=== PATIENT | female | born 1960 | race Caucasian/White ===

== ENCOUNTER 2017-01-27 11:33 | Inpatient (IN) ==
[2017-01-27] MEDS ORDERED: ACETAMINOPHEN 325 MG TABLET PO PRN (11:45)
[2017-01-27] MEDS ORDERED: BISACODYL 10 MG SUPP.RECT PR PRN (11:45)
[2017-01-27] MEDS ORDERED: PROMETHAZINE 25 MG/ML VIAL IV PRN (11:45)
[2017-01-27] MEDS ORDERED: ZOLPIDEM 5 MG TABLET PO PRN (11:45)
[2017-01-27] MEDS: oxyCODONE/APAP 5/325MG TABLET PO PRN ×3 (12:27→22:31)
--- NOTE | 2017-01-27 12:30 | XRay Report ---
CLINICAL INFORMATION: Hypoxia COMPARISON: None. FINDINGS:The heart size, mediastinum and pulmonary vessels are unremarkable. The lungs are clear. There are no effusions. The bones and soft tissues are within normal limits. IMPRESSION: Normal chest. Interpreted and Authenticated by: Dayo Haddad 01/27/17
--- NOTE | 2017-01-27 12:31 | General Surg History&Physical ---
History of Present Illness Patient information: Note initiated : 01/27/17 at 12:01 pm Service Date, if different from initiated Date: [] Patient: Rain Harden 56 y/o F admitted on 01/27/17 for colitis and sepsis. Chief Complaint: [] HPI: Ms. Harden is a 56 year old female Medications and Allergies Home Medications Medication Instructions Recorded Confirmed Type Sulfamethoxazole/Trimethoprim 1 tab PO BID #20 tab 01/26/17 01/27/17 Rx [Bactrim Ds] Allergies Allergy/AdvReac Type Severity Reaction Status Date / Time morphine Allergy Severe Wheezing Verified 01/27/17 10:34 aspirin Allergy Intermediate Hives Verified 01/27/17 10:34
[2017-01-27 12:46] LABS: Mean Cell Volume 85.8 fL (80.0-100.0); Mean Corpuscular HGB Conc 33.1 g/dL (31.0-36.0); Mean Corpuscular Hemoglobin 28.4 pg (26.0-34.0); Platelet Count 576 K/mcL (140-440); RBC 4.08 M/mcL (4.00-5.20); Red Cell Distribution Width 12.7 % (11.5-14.5)
[2017-01-27 13:01] LABS: proBNP 193.7 pg/ml (0-125)
[2017-01-27 13:06] LABS: ALT/SGPT 11 U/l (0-40); Albumin 2.5 gm/dL (3.2-5.2); Albumin/Globulin Ratio 0.5 (1.0-2.3); Alkaline Phosphatase 140 U/L (39-117); Bilirubin,Direct < 0.2 mg/dL (0.0-0.3); Blood Urea Nitrogen 10 mg/dl (6-20); Gamma Glutamyl Transpeptidase 52 U/L (5-36); Magnesium 1.4 mg/dL (1.6-2.5); Uric Acid 1.9 mg/dL (2.5-8.0)
[2017-01-27] MEDS: 0.9 % SODIUM CHLORIDE 1,000 ML IV SCH ×3 (13:13→21:17)
[2017-01-27] MEDS: PIPERACILLIN SODIUM/TAZOBACTAM 3.375 GM in DEXTROSE 5% IN WATER 50 ML IV SCH ×3 (13:14→23:30)
[2017-01-27] MEDS: 0.9 % SODIUM CHLORIDE 10 ML SYRINGE IV SCH ×2 (13:22→21:23)
[2017-01-27 13:38] LABS: Lymphocytes % 9 % (15-49); Monocytes % (Manual) 8 % (1-12); Platelet Estimate INCREASED (NORMAL); RBC Morphology NORMAL (NORMAL); Segmented Neutrophils % 83 % (38-78)
[2017-01-27 14:10] LABS: Estimated Average Glucose(eAG) 312 mg/dL; Hemoglobin A1C 12.5 % HGB (4.0-6.0)
[2017-01-27] MEDS ORDERED: DEXTROSE 50% 50 ML VIAL IV PRN (15:21)
[2017-01-27 15:22] LABS: Appearance,Urine CLEAR; Bacteria,Urine 0 /hpf (0); Bilirubin,Urine NEG (NEG); Color,Urine STRAW; Glucose,Urine (UA) >=500 mg/dL (NEG); Leukocyte Esterase,Urine 250 /uL (NEG); Nitrate,Urine NEG (NEG); Protein,Urine NEG (NEG); Specific Gravity,Urine 1.014 (1.000-1.035); Urine Blood 0.03 mg/dL (<0.03); Urine Hyaline Cast 1 /lpf (0-2); Urine RBC 3 /hpf (0-1); Urine Squamous Epithelial Cell 1 /hpf (0-4); Urine Transitional Epi Cells < 1 /hpf (0-2); Urine WBC 41 /hpf (0-4); Urobilinogen,Urine NEG (NEG)
[2017-01-27] MEDS: HYDROmorphone 2 MG/ML SYRINGE IV PRN ×3 (16:38→23:26)
[2017-01-27] MEDS: INSULIN LISPRO 1 UNIT/0.01 ML UNIT SQ SCH ×2 (16:42→21:18)
[2017-01-27] MEDS: hydrOXYzine 25 MG TABLET PO SCH (21:17)
[2017-01-27] MEDS: GABAPENTIN 300 MG CAPSULE PO SCH (21:17)
[2017-01-27] MEDS: TRAVOPROST OPHTH DROPS BOTTLE 2.5ML OU SCH (21:23)
[2017-01-28] MEDS: 0.9 % SODIUM CHLORIDE 1,000 ML IV SCH ×4 (03:17→21:34)
[2017-01-28] MEDS: oxyCODONE/APAP 5/325MG TABLET PO PRN ×2 (03:31→17:30)
[2017-01-28] MEDS: HYDROmorphone 2 MG/ML SYRINGE IV PRN ×6 (03:31→20:28)
[2017-01-28] MEDS: 0.9 % SODIUM CHLORIDE 10 ML SYRINGE IV SCH ×3 (04:56→23:50)
[2017-01-28] MEDS: PIPERACILLIN SODIUM/TAZOBACTAM 3.375 GM in DEXTROSE 5% IN WATER 50 ML IV SCH ×3 (05:47→18:30)
[2017-01-28] MEDS: VENLAFAXINE 75 MG CAP.XL.24H PO SCH (08:33)
[2017-01-28] MEDS: PANTOPRAZOLE 40 MG VIAL IV SCH (08:33)
[2017-01-28] MEDS: ENOXAPARIN 40 MG/0.4 ML SYRINGE SQ SCH (08:33)
[2017-01-28] MEDS: INSULIN LISPRO 1 UNIT/0.01 ML UNIT SQ SCH ×4 (08:33→20:28)
[2017-01-28] MEDS: VENLAFAXINE 150 MG CAP.XL.24H PO SCH (08:33)
[2017-01-28] MEDS: GABAPENTIN 300 MG CAPSULE PO SCH ×3 (08:34→20:14)
[2017-01-28] MEDS ORDERED: POTASSIUM PHOSPHATE 40 MEQ in DEXTROSE 5% IN WATER 500 ML IV ONE (09:59)
[2017-01-28] MEDS ORDERED: MAGNESIUM SULFATE 32.48 MEQ in DEXTROSE 5% IN WATER 50 ML IV ONE (10:00)
[2017-01-28] MEDS ORDERED: VANCOMYCIN PER PHARMACY IV SCH (15:10)
--- NOTE | 2017-01-28 15:23 | General Surgery Progress Note ---
Subjective Patient reports: feels better, still having pain, pain is less, tolerating liquids well, flatus, bowel movement, fever Narrative: Note initiated : 01/28/17 at 3:19 pm Service Date, if different from initiated Date: [] Patient: Rain Harden a 56 y/o F admitted on 01/27/17 for colitis and sepsis. Chief Complaint: [Patient states that she feels better though she does have significant pain in the right lower quadrant. The suprapubic pain has decreased but is still present. She was febrile to 100 earlier this morning but has been afebrile all day. She has passed flatus but has not had bowel movements. She denies nausea or vomiting.] Pertinent ROS: chest--no shortness of breath or dyspnea Heart--without chest pain Abdomen--- no increase in pain Extremity--- no edema Objective Temp Pulse Resp BP Pulse Ox 98.5 F 99 H 16 124/77 92 01/28/17 11:50 01/28/17 08:00 01/28/17 11:50 01/28/17 11:50 01/28/17 11:50 - Additional Data Intake & Output - Last 24 hours: Intake & Output 01/26/17 01/27/17 01/28/17 01/29/17 05:59 05:59 05:59 05:59 Intake Total 3890 / 3890 550 / 550 Output Total 2475 / 2475 400 / 400 Balance 1415 / 1415 150 / 150 Weight 201 lb - General physical appearance moderate distress - Eyes PERRL - ENT no congestion - Neck no venous distension - Respiratory normal expansion, clear to auscultation - Cardiovascular Cardiovascular exam: Present: normal rate and rhythm, RRR, +S1, +S2. Absent: JVD - Abdomen tender, bowel sounds, distended (Distention is improved; good active bowel sounds; moderate tenderness in suprapubic and right lower quadrant areas) - Integumentary no rash, no growths, no abnormal pigmentation - Neurologic normal coordination, normal sensation - Musculoskeletal normal gait, normal posture - Psychiatric oriented to time, oriented to person, oriented to place, speech is normal, memory intact - Labs 01/30/17 04:23 01/30/17 04:23 Assessment and Plan (1) Abdominal wall abscess Status: Acute Current Visit: Yes (2) Constipation Status: Acute Current Visit: No - Time Spent With Patient Total time spent is greater than 50% in coordination of care (as documented) at patient's floor/unit and/or counseling patient:
[2017-01-28] MEDS: VANCOMYCIN 1,000 MG in 0.9 % SODIUM CHLORIDE 250 ML IV SCH (17:28)
[2017-01-28] MEDS: TRAVOPROST OPHTH DROPS BOTTLE 2.5ML OU SCH (20:13)
[2017-01-28] MEDS: hydrOXYzine 25 MG TABLET PO SCH (20:14)
[2017-01-28] MEDS ORDERED: MINERAL OIL 1 DOSE ENEMA PR ONE (20:35)
[2017-01-29] MEDS: PIPERACILLIN SODIUM/TAZOBACTAM 3.375 GM in DEXTROSE 5% IN WATER 50 ML IV SCH ×4 (00:21→17:54)
[2017-01-29] MEDS: VANCOMYCIN 1,000 MG in 0.9 % SODIUM CHLORIDE 250 ML IV SCH ×2 (03:53→15:39)
[2017-01-29] MEDS: HYDROmorphone 2 MG/ML SYRINGE IV PRN ×5 (04:30→21:48)
[2017-01-29] MEDS: 0.9 % SODIUM CHLORIDE 1,000 ML IV SCH ×2 (04:56→12:01)
[2017-01-29] MEDS: 0.9 % SODIUM CHLORIDE 10 ML SYRINGE IV SCH ×3 (06:02→21:43)
[2017-01-29 06:20] LABS: Basophils # (Auto) 0.1 K/mcL (0.0-0.3); Basophils % (Auto) 0.3 % (0.0-2.0); Eosinophils # (Auto) 0.1 K/mcL (0.0-0.7); Eosinophils % (Auto) 0.5 % (0.0-7.0); Granulocytes % (Auto) 84.1 % (38.0-78.0); Lymphocytes # (Auto) 1.4 K/mcL (1.5-4.8); Lymphocytes % (Auto) 8.4 % (15.5-49.0); Mean Cell Volume 86.5 fL (80.0-100.0); Mean Corpuscular HGB Conc 33.5 g/dL (31.0-36.0); Mean Corpuscular Hemoglobin 28.9 pg (26.0-34.0); Monocytes # (Auto) 1.1 K/mcL (0.1-0.9); Monocytes % (Auto) 6.7 % (1.0-12.0); Platelet Count 550 K/mcL (140-440); RBC 3.64 M/mcL (4.00-5.20); Red Cell Distribution Width 13.4 % (11.5-14.5)
[2017-01-29 06:46] LABS: ALT/SGPT 7 U/l (0-40); Albumin/Globulin Ratio 0.5 (1.0-2.3); Alkaline Phosphatase 189 U/L (39-117); Bilirubin,Direct < 0.2 mg/dL (0.0-0.3); Blood Urea Nitrogen 2 mg/dl (6-20); Gamma Glutamyl Transpeptidase 50 U/L (5-36); Magnesium 1.7 mg/dL (1.6-2.5)
[2017-01-29] MEDS ORDERED: POTASSIUM PHOSPHATE IV ONE (07:04)
[2017-01-29] MEDS ORDERED: WATER IV ONE (07:04)
[2017-01-29] MEDS ORDERED: DEXTROSE 5% IV ONE (07:04)
[2017-01-29] MEDS ORDERED: MAGNESIUM SULFATE 32.48 MEQ in DEXTROSE 5% IN WATER 50 ML IV ONE (07:07)
[2017-01-29] MEDS: PANTOPRAZOLE 40 MG VIAL IV SCH (07:28)
[2017-01-29] MEDS: INSULIN LISPRO 1 UNIT/0.01 ML UNIT SQ SCH ×4 (07:32→21:43)
[2017-01-29] MEDS: VENLAFAXINE 150 MG CAP.XL.24H PO SCH (08:53)
[2017-01-29] MEDS: GABAPENTIN 300 MG CAPSULE PO SCH ×3 (08:53→21:43)
[2017-01-29] MEDS: VENLAFAXINE 75 MG CAP.XL.24H PO SCH (08:53)
[2017-01-29] MEDS: ENOXAPARIN 40 MG/0.4 ML SYRINGE SQ SCH (08:53)
[2017-01-29] MEDS: oxyCODONE/APAP 5/325MG TABLET PO PRN (09:37)
--- NOTE | 2017-01-29 10:19 | XRay Report ---
CLINICAL INFORMATION: Abdominal pain COMPARISON: None. FINDINGS: A small amount of enteric contrast, from recent abdominal CT, within the colon.. Stomach, small and large bowel are normal. No free air, pathologic calcification or organomegaly. No soft tissue mass IMPRESSION: Negative Interpreted and Authenticated by: Dayo Haddad 01/29/17
--- NOTE | 2017-01-29 13:18 | General Surgery Progress Note ---
Subjective Patient reports: feels better, still having pain, flatus, no bowel movement, afebrile Narrative: Note initiated : 01/29/17 at 1:16 pm Service Date, if different from initiated Date: [] Patient: Rain Harden 56 y/o F admitted on 01/27/17 for colitis and sepsis. Chief Complaint: [Patient is slightly improved. Her pain persists in the right abdomen and suprapubic area. She has crampy mid abdominal pain. A milk of molasses enema was given last evening but was not successful. Abdominal series shows retained large volume fecal content in left colon with gas in the transverse colon. She has scattered gas in the small bowel.] Objective Temp Pulse Resp BP Pulse Ox 97.0 F 108 H 20 103/66 96 01/29/17 12:32 01/29/17 07:30 01/29/17 12:32 01/29/17 12:32 01/29/17 12:32 - Additional Data Intake & Output - Last 24 hours: Intake & Output 01/27/17 01/28/17 01/29/17 01/30/17 05:59 05:59 05:59 05:59 Intake Total 3890 / 3890 4550 / 4550 2428 / 2428 Output Total 2475 / 2475 1400 / 1400 1200 / 1200 Balance 1415 / 1415 3150 / 3150 1228 / 1228 Weight 201 lb 203 lb - General physical appearance severe distress - Eyes PERRL - ENT no congestion - Neck no venous distension - Respiratory clear to auscultation - Cardiovascular Cardiovascular exam: Present: normal rate and rhythm, RRR, +S1, +S2. Absent: JVD - Abdomen tender, distended (Moderate distention with tenderness over the right lower quadrant and midabdomen.) - Rectum other (Rectal exam was unremarkable except for stool in the high rectal vault) - Integumentary no rash, no growths, no abnormal pigmentation - Neurologic normal coordination, normal sensation - Musculoskeletal normal gait, normal posture - Psychiatric oriented to time, oriented to person, oriented to place, speech is normal, memory intact - Labs 01/29/17 04:40 01/29/17 04:40 Diabetes panel 01/29/17 Range/Units 04:40 Sodium 133 (133-145) mmol/L Potassium 2.8 L* (3.3-5.1) mmol/L Chloride 94 L (96-108) mmol/L Carbon Dioxide 21 L (22-30) mmol/L BUN 2 L (6-20) mg/dl Creatinine 0.6 (0.6-1.1) mg/dl Glucose 200 H (70-105) mg/dL Calcium 7.4 L (8.6-10.4) mg/dl AST 13 (0-37) U/l ALT 7 (0-40) U/l Alkaline Phosphatase 189 H (39-117) U/L Total Protein 6.1 (5.9-8.4) gm/dL Albumin 2.0 L (3.2-5.2) gm/dL Triglycerides 107 (<150) mg/dl Calcium panel 01/29/17 Range/Units 04:40 Calcium 7.4 L (8.6-10.4) mg/dl Phosphorus 1.6 L (2.7-4.5) mg/dL Albumin 2.0 L (3.2-5.2) gm/dL Pituitary panel 01/29/17 Range/Units 04:40 Sodium 133 (133-145) mmol/L Potassium 2.8 L* (3.3-5.1) mmol/L Chloride 94 L (96-108) mmol/L Carbon Dioxide 21 L (22-30) mmol/L BUN 2 L (6-20) mg/dl Creatinine 0.6 (0.6-1.1) mg/dl Glucose 200 H (70-105) mg/dL Calcium 7.4 L (8.6-10.4) mg/dl Adrenal panel 01/29/17 Range/Units 04:40 Sodium 133 (133-145) mmol/L Potassium 2.8 L* (3.3-5.1) mmol/L Chloride 94 L (96-108) mmol/L Carbon Dioxide 21 L (22-30) mmol/L BUN 2 L (6-20) mg/dl Creatinine 0.6 (0.6-1.1) mg/dl Glucose 200 H (70-105) mg/dL Calcium 7.4 L (8.6-10.4) mg/dl Total Bilirubin 0.2 (0.0-1.0) mg/dL AST 13 (0-37) U/l ALT 7 (0-40) U/l Alkaline Phosphatase 189 H (39-117) U/L Total Protein 6.1 (5.9-8.4) gm/dL Albumin 2.0 L (3.2-5.2) gm/dL Assessment and Plan (1) Constipation Status: Acute Current Visit: No - Time Spent With Patient Total time spent is greater than 50% in coordination of care (as documented) at patient's floor/unit and/or counseling patient:
[2017-01-29] MEDS: hydrOXYzine 25 MG TABLET PO SCH (21:43)
[2017-01-29] MEDS: TRAVOPROST OPHTH DROPS BOTTLE 2.5ML OU SCH (21:43)
[2017-01-30] MEDS: 0.9 % SODIUM CHLORIDE 1,000 ML IV SCH ×4 (00:15→21:12)
[2017-01-30] MEDS: HYDROmorphone 2 MG/ML SYRINGE IV PRN ×6 (03:20→22:01)
[2017-01-30] MEDS: VANCOMYCIN 1,000 MG in 0.9 % SODIUM CHLORIDE 250 ML IV SCH ×2 (04:12→16:02)
[2017-01-30] MEDS: PIPERACILLIN SODIUM/TAZOBACTAM 3.375 GM in DEXTROSE 5% IN WATER 50 ML IV SCH ×5 (05:45→17:53)
[2017-01-30 05:52] LABS: Basophils # (Auto) 0 K/mcL (0.0-0.3); Basophils % (Auto) 0.3 % (0.0-2.0); Eosinophils # (Auto) 0.4 K/mcL (0.0-0.7); Eosinophils % (Auto) 2.3 % (0.0-7.0); Lymphocytes % (Auto) 12.7 % (15.5-49.0); Mean Cell Volume 85.1 fL (80.0-100.0); Mean Corpuscular HGB Conc 32.9 g/dL (31.0-36.0); Monocytes # (Auto) 1.5 K/mcL (0.1-0.9); Monocytes % (Auto) 9.7 % (1.0-12.0); Platelet Count 492 K/mcL (140-440); Red Cell Distribution Width 13.3 % (11.5-14.5)
[2017-01-30] MEDS: 0.9 % SODIUM CHLORIDE 10 ML SYRINGE IV SCH ×3 (05:55→21:49)
[2017-01-30 06:02] LABS: ALT/SGPT 7 U/l (0-40); Albumin 1.8 gm/dL (3.2-5.2); Albumin/Globulin Ratio 0.4 (1.0-2.3); Alkaline Phosphatase 112 U/L (39-117); Bilirubin,Direct < 0.2 mg/dL (0.0-0.3); Blood Urea Nitrogen 2 mg/dl (6-20); Gamma Glutamyl Transpeptidase 41 U/L (5-36); Magnesium 1.9 mg/dL (1.6-2.5); Uric Acid 0.9 mg/dL (2.5-8.0)
[2017-01-30] MEDS: PANTOPRAZOLE 40 MG VIAL IV SCH (07:37)
[2017-01-30] MEDS ORDERED: POTASSIUM CHLORIDE 40 MEQ in DEXTROSE 5% IN WATER 500 ML IV ONE (08:30)
[2017-01-30] MEDS ORDERED: IOPAMIDOL 100 ML BOTTLE IJ ONE (08:34)
[2017-01-30] MEDS: VENLAFAXINE 150 MG CAP.XL.24H PO SCH (09:14)
[2017-01-30] MEDS: ENOXAPARIN 40 MG/0.4 ML SYRINGE SQ SCH (09:15)
[2017-01-30] MEDS: INSULIN LISPRO 1 UNIT/0.01 ML UNIT SQ SCH ×4 (09:15→21:14)
[2017-01-30] MEDS: VENLAFAXINE 75 MG CAP.XL.24H PO SCH (09:15)
[2017-01-30] MEDS: GABAPENTIN 300 MG CAPSULE PO SCH ×3 (09:15→21:12)
--- NOTE | 2017-01-30 14:40 | Cat Scan Report ---
CLINICAL INFORMATION: Worsening right lower quadrant pain COMPARISON: ] 01/26/[address] TECHNIQUE: Following enteric contrast, 80 cc of Isovue-300 were injected intravenously, and 60 seconds later, 2.5 mm helical slices were obtained from the mid heart through the subtrochanteric regions. Following reconstruction, 2.5 mm sagittal, coronal and axial reformatted images were processed and reviewed at bone, lung and soft tissue windows. Five minutes later, 5 mm helical slices were obtained from the mid heart through the kidneys and viewed at soft tissue windows. FINDINGS: Lung bases show no abnormality - no effusion. The visualized heart is normal. Images through the abdomen show the gallbladder is surgically absent. Intrahepatic and common bile ducts are mildly dilated: CBD is 11 mm. The pancreas, both kidneys, adrenal glands, spleen and aorta are unremarkable. There is no free air, free fluid or adenopathy. Stomach, small and large bowel are normal. Images through the pelvis show the urinary bladder and uterus to be normal as before. The thick-walled fluid collection in the left adductor tendon insertion on pubic symphysis has decreased slightly since the study four days ago. It now measures 3.4 cm. Mild inflammatory thickening and soft tissue over the pubic symphysis seen - as before. The fluid collection in the deep right Camper's fascia, adjacent to the right rectus abdominis, show modest increase in size now 5.1 x 11.5 cm There is also moderate amount of inflammation in the surrounding fat. Bone windows show no osseous abnormality. IMPRESSION: 1. Thick-walled fluid collection in the deep Camper's fascia in the right lower quadrant, adjacent to the right rectus abdominis muscle, shows mild increase in size. There is a moderate amount of inflammation in the surrounding soft tissues. This could represent an abscess. 2. 3.4 cm fluid collection in the left adductor tendon origin on the symphysis pubis. This has decreased slightly. Interpreted and Authenticated by: Dayo Haddad 01/30/17
--- NOTE | 2017-01-30 14:45 | General Surgery Progress Note ---
Subjective Patient reports: still having pain, flatus, bowel movement, fever Narrative: Note initiated : 01/30/17 at 2:42 pm Service Date, if different from initiated Date: [] Patient: Rain Harden 56 y/o F admitted on 01/27/17 for colitis and sepsis. Chief Complaint: [Mrs. Harden continues to have pain in the right lower quadrant and suprapubic area. She has not had fever over the past 24 hours. She is having worsening difficulty moving. Her white blood count has not decreased significantly. CT of the abdomen that was done today shows that the 2 areas of inflammation are significantly worse. It is going to require operative drainage and debridement. She was informed of this and advised that this procedure will be done in the morning. She remains somewhat anorexic.] Objective Temp Pulse Resp BP Pulse Ox 98.5 F 100 H 20 134/70 95 01/30/17 11:56 01/30/17 07:57 01/30/17 11:56 01/30/17 11:56 01/30/17 11:56 - Additional Data Intake & Output - Last 24 hours: Intake & Output 01/28/17 01/29/17 01/30/17 01/31/17 05:59 05:59 05:59 05:59 Intake Total 3890 / 3890 4800 / 4800 4468 / 4468 2680 / 2680 Output Total 2475 / 2475 1400 / 1400 3550 / 3550 1750 / 1750 Balance 1415 / 1415 3400 / 3400 918 / 918 930 / 930 Weight 201 lb 203 lb 208 lb - General physical appearance severe pain - Eyes PERRL - ENT no congestion - Neck no venous distension - Respiratory normal expansion, normal respiratory effort, clear to auscultation - Cardiovascular Cardiovascular exam: Present: normal rate and rhythm, RRR, +S1, +S2. Absent: JVD - Abdomen tender, bowel sounds, distended (Mild distention with active bowel sounds; tenderness in suprapubic area and and right lower quadrant with mass-effect on the right) - Integumentary no rash, no growths, no abnormal pigmentation - Neurologic normal coordination, normal sensation - Musculoskeletal normal gait, normal posture - Psychiatric oriented to time, oriented to person, oriented to place, speech is normal, memory intact - Labs 01/30/17 04:23 01/30/17 04:23 Diabetes panel 01/30/17 Range/Units 04:23 Sodium 133 (133-145) mmol/L Potassium 3.0 L (3.3-5.1) mmol/L Chloride 95 L (96-108) mmol/L Carbon Dioxide 25 (22-30) mmol/L BUN 2 L (6-20) mg/dl Creatinine 0.5 L (0.6-1.1) mg/dl Glucose 138 H (70-105) mg/dL Calcium 7.6 L (8.6-10.4) mg/dl AST 15 (0-37) U/l ALT 7 (0-40) U/l Alkaline Phosphatase 112 (39-117) U/L Total Protein 5.9 (5.9-8.4) gm/dL Albumin 1.8 L (3.2-5.2) gm/dL Triglycerides 98 (<150) mg/dl Calcium panel 01/30/17 Range/Units 04:23 Calcium 7.6 L (8.6-10.4) mg/dl Phosphorus 2.7 (2.7-4.5) mg/dL Albumin 1.8 L (3.2-5.2) gm/dL Pituitary panel 01/30/17 Range/Units 04:23 Sodium 133 (133-145) mmol/L Potassium 3.0 L (3.3-5.1) mmol/L Chloride 95 L (96-108) mmol/L Carbon Dioxide 25 (22-30) mmol/L BUN 2 L (6-20) mg/dl Creatinine 0.5 L (0.6-1.1) mg/dl Glucose 138 H (70-105) mg/dL Calcium 7.6 L (8.6-10.4) mg/dl Adrenal panel 01/30/17 Range/Units 04:23 Sodium 133 (133-145) mmol/L Potassium 3.0 L (3.3-5.1) mmol/L Chloride 95 L (96-108) mmol/L Carbon Dioxide 25 (22-30) mmol/L BUN 2 L (6-20) mg/dl Creatinine 0.5 L (0.6-1.1) mg/dl Glucose 138 H (70-105) mg/dL Calcium 7.6 L (8.6-10.4) mg/dl Total Bilirubin 0.2 (0.0-1.0) mg/dL AST 15 (0-37) U/l ALT 7 (0-40) U/l Alkaline Phosphatase 112 (39-117) U/L Total Protein 5.9 (5.9-8.4) gm/dL Albumin 1.8 L (3.2-5.2) gm/dL Assessment and Plan (1) Constipation Status: Acute Assessment and plan: She had some response to the milk of molasses enema and has had 3 bowel movements though they have been poorly quantitated. She will be allowed to have regular diet tonight and will be n.p.o. after midnight. Current Visit: No (2) Abdominal wall abscess Status: Acute Assessment and plan: Patient counseled for exploration of abdominal wall with drainage of abscess. This will be done in the morning. Current Visit: Yes - Time Spent With Patient Total time spent is greater than 50% in coordination of care (as documented) at patient's floor/unit and/or counseling patient:
[2017-01-30] MEDS: hydrOXYzine 25 MG TABLET PO SCH (21:12)
[2017-01-30] MEDS: TRAVOPROST OPHTH DROPS BOTTLE 2.5ML OU SCH (22:02)
[2017-01-31] MEDS: TRAVOPROST OPHTH DROPS BOTTLE 2.5ML OU SCH ×2 (00:26→22:59)
[2017-01-31] MEDS: PIPERACILLIN SODIUM/TAZOBACTAM 3.375 GM in DEXTROSE 5% IN WATER 50 ML IV SCH ×4 (00:26→22:57)
[2017-01-31] MEDS: HYDROmorphone 2 MG/ML SYRINGE IV PRN ×6 (02:41→23:07)
[2017-01-31] MEDS: VANCOMYCIN 1,000 MG in 0.9 % SODIUM CHLORIDE 250 ML IV SCH ×3 (04:02→21:32)
[2017-01-31 06:20] LABS: Basophils # (Auto) 0 K/mcL (0.0-0.3); Basophils % (Auto) 0.1 % (0.0-2.0); Eosinophils # (Auto) 0.1 K/mcL (0.0-0.7); Granulocytes % (Auto) 83.6 % (38.0-78.0); Lymphocytes # (Auto) 1.3 K/mcL (1.5-4.8); Lymphocytes % (Auto) 8.8 % (15.5-49.0); Mean Cell Volume 86.1 fL (80.0-100.0); Mean Corpuscular HGB Conc 33.1 g/dL (31.0-36.0); Mean Corpuscular Hemoglobin 28.5 pg (26.0-34.0); Monocytes # (Auto) 0.9 K/mcL (0.1-0.9); Monocytes % (Auto) 6.5 % (1.0-12.0); Platelet Count 482 K/mcL (140-440); RBC 3.19 M/mcL (4.00-5.20); Red Cell Distribution Width 13.2 % (11.5-14.5)
[2017-01-31 06:42] LABS: ALT/SGPT 7 U/l (0-40); Albumin/Globulin Ratio 0.6 (1.0-2.3); Alkaline Phosphatase 114 U/L (39-117); Bilirubin,Direct < 0.2 mg/dL (0.0-0.3); Blood Urea Nitrogen 2 mg/dl (6-20); Gamma Glutamyl Transpeptidase 38 U/L (5-36); Magnesium 1.8 mg/dL (1.6-2.5); Uric Acid 0.8 mg/dL (2.5-8.0)
[2017-01-31] MEDS: 0.9 % SODIUM CHLORIDE 10 ML SYRINGE IV SCH (06:56)
[2017-01-31] MEDS ORDERED: IPRATROPIUM/ALBUTEROL 3 ML AMPUL.NEB NEB ONE (07:39)
[2017-01-31] MEDS ORDERED: LIDOCAINE HCL/PF 100 MG/5 ML SYRINGE IV ONE (08:30)
[2017-01-31] MEDS ORDERED: fentaNYL 250 MCG/5 ML VIAL IV ONE (08:30)
[2017-01-31] MEDS ORDERED: DEXAMETHASONE 10 MG/ML VIAL IV ONE (08:30)
[2017-01-31] MEDS ORDERED: SUCCINYLCHOLINE 20 MG/ML ML IV ONE (08:30)
[2017-01-31] MEDS ORDERED: HYDROmorphone 2 MG/ML SYRINGE IV ONE (08:30)
[2017-01-31] MEDS ORDERED: NEOSTIGMINE 1 MG/ML VIAL IV ONE (08:30)
[2017-01-31] MEDS ORDERED: MIDAZOLAM 5 MG/5 ML VIAL IV ONE (08:30)
[2017-01-31] MEDS ORDERED: ONDANSETRON 4 MG/2 ML VIAL IV ONE (08:30)
[2017-01-31] MEDS ORDERED: PROPOFOL 200 MG/20 ML VIAL IV ONE (08:30)
[2017-01-31] MEDS ORDERED: ROCURONIUM 10 MG/ML ML IV ONE (08:30)
[2017-01-31] MEDS ORDERED: GLYCOPYRROLATE 0.2 MG/ML VIAL IV ONE (08:30)
[2017-01-31] MEDS: PANTOPRAZOLE 40 MG VIAL IV SCH (08:47)
[2017-01-31] MEDS: INSULIN LISPRO 1 UNIT/0.01 ML UNIT SQ SCH ×4 (08:47→20:59)
[2017-01-31] MEDS ORDERED: LACTATED RINGERS 250 ML IV PRN (09:37)
[2017-01-31] MEDS ORDERED: IPRATROPIUM/ALBUTEROL 3 ML AMPUL.NEB NEB PRN (09:37)
[2017-01-31] MEDS ORDERED: ONDANSETRON 4 MG/2 ML VIAL IV PRN (09:37)
[2017-01-31] MEDS ORDERED: HYDROmorphone 2 MG/ML SYRINGE IV PRN (09:37)
[2017-01-31] MEDS ORDERED: diphenhydrAMINE 50 MG/ML VIAL IV PRN (09:37)
[2017-01-31] MEDS ORDERED: NALOXONE HCL 0.4 MG/ML VIAL IV PRN (09:37)
[2017-01-31] MEDS ORDERED: PROMETHAZINE 25 MG/ML VIAL IV PRN ×2 (09:37→10:46)
[2017-01-31] MEDS ORDERED: MEPERIDINE 50 MG/ML SYRINGE IM PRN (09:37)
[2017-01-31] MEDS ORDERED: ePHEDrine 50 MG/ML AMPUL IV PRN (09:37)
[2017-01-31] MEDS ORDERED: PROMETHAZINE 25 MG/ML VIAL IM PRN (09:37)
[2017-01-31] MEDS ORDERED: BENZOCAINE/MENTHOL 1 LOZENGE PO PRN ×2 (09:37→10:46)
[2017-01-31] MEDS ORDERED: METHOCARBAMOL 1,000 MG/10 ML VIAL IV PRN (09:37)
[2017-01-31] MEDS ORDERED: FLUMAZENIL 0.1 MG/ML ML IV PRN (09:37)
[2017-01-31] MEDS ORDERED: MEPERIDINE 25 MG/ML SYRINGE IV PRN (09:37)
[2017-01-31] MEDS ORDERED: BACITRACIN 50,000 UNIT VIAL IR ONE (09:38)
[2017-01-31] MEDS ORDERED: LACTATED RINGERS 1,000 ML IV SCH (09:45)
[2017-01-31] MEDS: fentaNYL 100 MCG/2 ML VIAL IV PRN ×2 (10:07→10:18)
--- NOTE | 2017-01-31 10:09 | Brief Operative Note ---
Date of procedure: 01/31/17 Pre-op diagnosis: abdominal wall abscess Post-op diagnosis: other (deep abdominal wall abscess with necrotizing rectal muscle fascia) Procedure: exploration of abdominal wall with drainage of abscess and debridement of anterior rectus fascial necrosis Grafts/Implants: No Anesthesia: GETA Findings: abscess of deep subcutaneous abdominal wall extending to rectus fascia and pyramidalis muscle and down to symphysis pubis; no extension in submuscular plane Complications: none Surgeon: Emerson Jefferson Estimated blood loss (cc): 5 Specimens Removed/Pathology: other (necrotic fascia and cultures) Condition: stable Disposition: PACU
[2017-01-31] MEDS ORDERED: DEXTROSE 50% 50 ML VIAL IV PRN (10:46)
[2017-01-31] MEDS ORDERED: ZOLPIDEM 5 MG TABLET PO PRN (10:46)
[2017-01-31] MEDS ORDERED: BISACODYL 10 MG SUPP.RECT PR PRN (10:46)
[2017-01-31] MEDS: 0.9 % SODIUM CHLORIDE 1,000 ML IV SCH ×3 (10:58→23:45)
[2017-01-31] MEDS: GABAPENTIN 300 MG CAPSULE PO SCH ×3 (11:31→22:57)
[2017-01-31] MEDS: VENLAFAXINE 150 MG CAP.XL.24H PO SCH (11:31)
[2017-01-31] MEDS: ACETAMINOPHEN 325 MG TABLET PO PRN (11:52)
[2017-01-31] MEDS: ENOXAPARIN 40 MG/0.4 ML SYRINGE SQ SCH (12:06)
[2017-01-31] MEDS: VENLAFAXINE 75 MG CAP.XL.24H PO SCH (12:06)
[2017-01-31] MEDS ORDERED: POTASSIUM PHOSPHATE 40 MEQ in DEXTROSE 5% IN WATER 500 ML IV ONE ×2 (16:00→21:00)
[2017-01-31] MEDS: hydrOXYzine 25 MG TABLET PO SCH (22:58)
[2017-02-01] MEDS: PIPERACILLIN SODIUM/TAZOBACTAM 3.375 GM in DEXTROSE 5% IN WATER 50 ML IV SCH ×5 (00:07→23:23)
[2017-02-01] MEDS: INSULIN LISPRO 1 UNIT/0.01 ML UNIT SQ SCH ×6 (00:18→21:07)
[2017-02-01] MEDS: HYDROmorphone 2 MG/ML SYRINGE IV PRN ×6 (03:31→21:03)
[2017-02-01] MEDS: ACETAMINOPHEN 325 MG TABLET PO PRN (04:14)
[2017-02-01 05:43] LABS: Basophils # (Auto) 0 K/mcL (0.0-0.3); Basophils % (Auto) 0.3 % (0.0-2.0); Eosinophils # (Auto) 0 K/mcL (0.0-0.7); Eosinophils % (Auto) 0.3 % (0.0-7.0); Granulocytes % (Auto) 87.8 % (38.0-78.0); Lymphocytes # (Auto) 0.8 K/mcL (1.5-4.8); Lymphocytes % (Auto) 6.3 % (15.5-49.0); Mean Cell Volume 86.3 fL (80.0-100.0); Mean Corpuscular HGB Conc 32.9 g/dL (31.0-36.0); Mean Corpuscular Hemoglobin 28.4 pg (26.0-34.0); Monocytes # (Auto) 0.7 K/mcL (0.1-0.9); Monocytes % (Auto) 5.3 % (1.0-12.0); Platelet Count 470 K/mcL (140-440); RBC 3.19 M/mcL (4.00-5.20); Red Cell Distribution Width 13.6 % (11.5-14.5)
[2017-02-01 06:18] LABS: ALT/SGPT 7 U/l (0-40); Albumin 1.7 gm/dL (3.2-5.2); Albumin/Globulin Ratio 0.4 (1.0-2.3); Alkaline Phosphatase 120 U/L (39-117); Bilirubin,Direct < 0.2 mg/dL (0.0-0.3); Blood Urea Nitrogen 3 mg/dl (6-20); Gamma Glutamyl Transpeptidase 37 U/L (5-36); Magnesium 1.9 mg/dL (1.6-2.5); Uric Acid 0.9 mg/dL (2.5-8.0)
[2017-02-01] MEDS: 0.9 % SODIUM CHLORIDE 1,000 ML IV SCH ×4 (06:51→21:03)
[2017-02-01] MEDS: PANTOPRAZOLE 40 MG VIAL IV SCH (07:10)
[2017-02-01] MEDS: VENLAFAXINE 75 MG CAP.XL.24H PO SCH (08:05)
[2017-02-01] MEDS: VENLAFAXINE 150 MG CAP.XL.24H PO SCH (08:05)
[2017-02-01] MEDS: GABAPENTIN 300 MG CAPSULE PO SCH ×3 (08:05→21:03)
[2017-02-01] MEDS: ENOXAPARIN 40 MG/0.4 ML SYRINGE SQ SCH (08:06)
[2017-02-01] MEDS: VANCOMYCIN 1,000 MG in 0.9 % SODIUM CHLORIDE 250 ML IV SCH ×2 (09:28→21:06)
--- NOTE | 2017-02-01 10:41 | General Surgery Progress Note ---
Subjective Patient reports: feels better, still having pain, tolerating liquids well, no flatus, no bowel movement, afebrile Narrative: Note initiated : 02/01/17 at 10:39 am Service Date, if different from initiated Date: [] Patient: Rain Harden 56 y/o F admitted on 01/27/17 for colitis and sepsis. Chief Complaint: [Patient is having significant abdominal pain that is not controlled with her present Dilaudid and oral medication. She is otherwise doing fine. She does not have any nausea or vomiting. She has not had flatus since surgery but she does not have bloating or satiety. She she has a moderate amount of drainage on her dressing. Her outer dressing will be changed. Her abdominal pain is otherwise improved.] Objective Temp Pulse Resp BP Pulse Ox 97.6 F 67 20 102/64 96 02/01/17 06:55 02/01/17 03:25 02/01/17 06:55 02/01/17 06:55 02/01/17 06:55 - Additional Data Intake & Output - Last 24 hours: Intake & Output 01/30/17 01/31/17 02/01/17 02/02/17 05:59 05:59 05:59 05:59 Intake Total 4718 / 4718 5260 / 5260 4610 / 4610 690 / 690 Output Total 3550 / 3550 2900 / 2900 3150 / 3150 1000 / 1000 Balance 1168 / 1168 2360 / 2360 1460 / 1460 -310 / -310 Weight 208 lb 218 lb 8 oz 223 lb - General physical appearance moderate distress, moderate pain - Eyes PERRL - ENT no congestion - Neck no venous distension - Respiratory normal respiratory effort, clear to auscultation - Cardiovascular Cardiovascular exam: Present: normal rate and rhythm, RRR, +S1, +S2. Absent: JVD - Abdomen tender, distended (Abdomen is nondistended. She has active bowel sounds. Her incision is clean.) - Integumentary no rash, no growths, no abnormal pigmentation - Neurologic normal coordination, normal sensation - Musculoskeletal normal gait, normal posture - Psychiatric oriented to time, oriented to person, oriented to place, speech is normal, memory intact - Labs 02/01/17 04:47 02/01/17 04:47 Diabetes panel 02/01/17 Range/Units 04:47 Sodium 132 L (133-145) mmol/L Potassium 4.2 (3.3-5.1) mmol/L Chloride 94 L (96-108) mmol/L Carbon Dioxide 27 (22-30) mmol/L BUN 3 L (6-20) mg/dl Creatinine 0.5 L (0.6-1.1) mg/dl Glucose 380 H (70-105) mg/dL Calcium 7.9 L (8.6-10.4) mg/dl AST 17 (0-37) U/l ALT 7 (0-40) U/l Alkaline Phosphatase 120 H (39-117) U/L Total Protein 5.9 (5.9-8.4) gm/dL Albumin 1.7 L (3.2-5.2) gm/dL Triglycerides 121 (<150) mg/dl Calcium panel 02/01/17 Range/Units 04:47 Calcium 7.9 L (8.6-10.4) mg/dl Phosphorus 2.8 (2.7-4.5) mg/dL Albumin 1.7 L (3.2-5.2) gm/dL Pituitary panel 02/01/17 Range/Units 04:47 Sodium 132 L (133-145) mmol/L Potassium 4.2 (3.3-5.1) mmol/L Chloride 94 L (96-108) mmol/L Carbon Dioxide 27 (22-30) mmol/L BUN 3 L (6-20) mg/dl Creatinine 0.5 L (0.6-1.1) mg/dl Glucose 380 H (70-105) mg/dL Calcium 7.9 L (8.6-10.4) mg/dl Adrenal panel 02/01/17 Range/Units 04:47 Sodium 132 L (133-145) mmol/L Potassium 4.2 (3.3-5.1) mmol/L Chloride 94 L (96-108) mmol/L Carbon Dioxide 27 (22-30) mmol/L BUN 3 L (6-20) mg/dl Creatinine 0.5 L (0.6-1.1) mg/dl Glucose 380 H (70-105) mg/dL Calcium 7.9 L (8.6-10.4) mg/dl Total Bilirubin < 0.2 (0.0-1.0) mg/dL AST 17 (0-37) U/l ALT 7 (0-40) U/l Alkaline Phosphatase 120 H (39-117) U/L Total Protein 5.9 (5.9-8.4) gm/dL Albumin 1.7 L (3.2-5.2) gm/dL Assessment and Plan (1) Abdominal wall abscess Status: Acute Assessment and plan: patient is clinically stable and improved on this the first postoperative day. We will increase Dilaudid to 1.5 mg every 2 hours as needed and will give Tylenol 1 g IV every 6 standing dose Current Visit: Yes (2) Constipation Status: Acute Current Visit: No - Time Spent With Patient Total time spent is greater than 50% in coordination of care (as documented) at patient's floor/unit and/or counseling patient:
[2017-02-01] MEDS: ACETAMINOPHEN 1,000 MG/100 ML BOTTLE IV SCH ×3 (10:59→23:22)
[2017-02-01] MEDS: 0.9 % SODIUM CHLORIDE 500 ML IV SCH (10:59)
[2017-02-01] MEDS ORDERED: INSULIN DETEMIR 30 UNIT SQ SCH (21:00)
[2017-02-01] MEDS: hydrOXYzine 25 MG TABLET PO SCH (21:03)
[2017-02-01] MEDS: INSULIN GLARGINE, HUMAN 1 UNIT/0.01 ML SQ SCH (21:04)
[2017-02-01] MEDS: TRAVOPROST OPHTH DROPS BOTTLE 2.5ML OU SCH (21:09)
[2017-02-02] MEDS: 0.9 % SODIUM CHLORIDE 1,000 ML IV SCH ×3 (02:45→21:31)
[2017-02-02] MEDS: HYDROmorphone 2 MG/ML SYRINGE IV PRN ×4 (03:38→21:32)
[2017-02-02] MEDS: ACETAMINOPHEN 1,000 MG/100 ML BOTTLE IV SCH ×4 (05:24→23:46)
[2017-02-02] MEDS: PIPERACILLIN SODIUM/TAZOBACTAM 3.375 GM in DEXTROSE 5% IN WATER 50 ML IV SCH ×4 (05:25→23:45)
[2017-02-02 05:50] LABS: Basophils # (Auto) 0 K/mcL (0.0-0.3); Basophils % (Auto) 0.3 % (0.0-2.0); Eosinophils # (Auto) 0.3 K/mcL (0.0-0.7); Eosinophils % (Auto) 2.7 % (0.0-7.0); Granulocytes % (Auto) 71.7 % (38.0-78.0); Lymphocytes # (Auto) 1.7 K/mcL (1.5-4.8); Lymphocytes % (Auto) 18.2 % (15.5-49.0); Mean Cell Volume 87.1 fL (80.0-100.0); Mean Corpuscular HGB Conc 32.4 g/dL (31.0-36.0); Mean Corpuscular Hemoglobin 28.2 pg (26.0-34.0); Monocytes # (Auto) 0.7 K/mcL (0.1-0.9); Monocytes % (Auto) 7.1 % (1.0-12.0); Platelet Count 559 K/mcL (140-440); RBC 3.43 M/mcL (4.00-5.20); Red Cell Distribution Width 13.6 % (11.5-14.5)
[2017-02-02 06:01] LABS: ALT/SGPT 6 U/l (0-40); Albumin 1.9 gm/dL (3.2-5.2); Albumin/Globulin Ratio 0.4 (1.0-2.3); Alkaline Phosphatase 111 U/L (39-117); Bilirubin,Direct < 0.2 mg/dL (0.0-0.3); Blood Urea Nitrogen 4 mg/dl (6-20); Gamma Glutamyl Transpeptidase 45 U/L (5-36); Magnesium 1.8 mg/dL (1.6-2.5); Uric Acid 0.9 mg/dL (2.5-8.0)
[2017-02-02] MEDS: PANTOPRAZOLE 40 MG VIAL IV SCH (07:28)
[2017-02-02] MEDS: INSULIN LISPRO 1 UNIT/0.01 ML UNIT SQ SCH ×4 (07:30→21:29)
[2017-02-02] MEDS: VENLAFAXINE 150 MG CAP.XL.24H PO SCH (09:29)
[2017-02-02] MEDS: sitaGLIPtin 100 MG TABLET PO SCH (09:29)
[2017-02-02] MEDS: VENLAFAXINE 75 MG CAP.XL.24H PO SCH (09:29)
[2017-02-02] MEDS: GABAPENTIN 300 MG CAPSULE PO SCH ×3 (09:29→21:31)
[2017-02-02] MEDS: INSULIN GLARGINE, HUMAN 1 UNIT/0.01 ML SQ SCH ×2 (09:30→21:32)
[2017-02-02] MEDS: ENOXAPARIN 40 MG/0.4 ML SYRINGE SQ SCH (09:30)
[2017-02-02] MEDS: 0.9 % SODIUM CHLORIDE 500 ML IV SCH (11:10)
--- NOTE | 2017-02-02 15:30 | General Surgery Progress Note ---
Subjective Patient reports: still having pain, tolerating a regular diet, flatus, no bowel movement, afebrile Narrative: Note initiated : 02/02/17 at 3:27 pm Service Date, if different from initiated Date: [] Patient: Rain Harden 56 y/o F admitted on 01/27/17 for colit] Patient is stable No she does have significant abdominal pain. She has moderate drainage from her incision. Her dressing was changed and there is some necrosis in the bottom of her incision which will require debridement in the OR. Full dressing change was done. Patient is advised that she will need to have dressing change under anesthesia and I will apply a wound VAC at that time. the initial cultures are nonrevealing though she had gross necrosis and a large volume of pus. Repeat cultures were done. Objective Temp Pulse Resp BP Pulse Ox 98.6 F 93 H 18 109/57 91 02/02/17 11:46 02/02/17 04:00 02/02/17 11:46 02/02/17 11:46 02/02/17 11:46 - Additional Data Intake & Output - Last 24 hours: Intake & Output 01/31/17 02/01/17 02/02/17 02/03/17 05:59 05:59 05:59 05:59 Intake Total 5260 / 5260 4610 / 4610 6150 / 6150 934 / 934 Output Total 2900 / 2900 3150 / 3150 3375 / 3375 Balance 2360 / 2360 1460 / 1460 2775 / 2775 934 / 934 Weight 218 lb 8 oz 223 lb 230 lb 230 lb - General physical appearance moderate distress - Eyes PERRL - ENT no congestion - Neck no masses, no bruits, trachea midline, no lymphadectomy, no venous distension - Respiratory normal expansion, normal respiratory effort, clear to percussion, clear to auscultation - Cardiovascular Cardiovascular exam: Present: normal rate and rhythm, RRR, +S1, +S2 (Is good when you make a lot of money can do that). Absent: JVD - Abdomen tender - Integumentary no rash, no growths, no abnormal pigmentation - Neurologic normal coordination, normal sensation - Musculoskeletal normal gait, normal posture - Psychiatric oriented to time, oriented to person, oriented to place, speech is normal, memory intact - Labs 02/02/17 04:15 02/02/17 04:15 Diabetes panel 02/02/17 Range/Units 04:15 Sodium 138 (133-145) mmol/L Potassium 4.0 (3.3-5.1) mmol/L Chloride 101 (96-108) mmol/L Carbon Dioxide 28 (22-30) mmol/L BUN 4 L (6-20) mg/dl Creatinine 0.5 L (0.6-1.1) mg/dl Glucose 159 H (70-105) mg/dL Calcium 8.1 L (8.6-10.4) mg/dl AST 12 (0-37) U/l ALT 6 (0-40) U/l Alkaline Phosphatase 111 (39-117) U/L Total Protein 6.2 (5.9-8.4) gm/dL Albumin 1.9 L (3.2-5.2) gm/dL Triglycerides 121 (<150) mg/dl Calcium panel 02/02/17 Range/Units 04:15 Calcium 8.1 L (8.6-10.4) mg/dl Phosphorus 1.9 L (2.7-4.5) mg/dL Albumin 1.9 L (3.2-5.2) gm/dL Pituitary panel 02/02/17 Range/Units 04:15 Sodium 138 (133-145) mmol/L Potassium 4.0 (3.3-5.1) mmol/L Chloride 101 (96-108) mmol/L Carbon Dioxide 28 (22-30) mmol/L BUN 4 L (6-20) mg/dl Creatinine 0.5 L (0.6-1.1) mg/dl Glucose 159 H (70-105) mg/dL Calcium 8.1 L (8.6-10.4) mg/dl Adrenal panel 02/02/17 Range/Units 04:15 Sodium 138 (133-145) mmol/L Potassium 4.0 (3.3-5.1) mmol/L Chloride 101 (96-108) mmol/L Carbon Dioxide 28 (22-30) mmol/L BUN 4 L (6-20) mg/dl Creatinine 0.5 L (0.6-1.1) mg/dl Glucose 159 H (70-105) mg/dL Calcium 8.1 L (8.6-10.4) mg/dl Total Bilirubin < 0.2 (0.0-1.0) mg/dL AST 12 (0-37) U/l ALT 6 (0-40) U/l Alkaline Phosphatase 111 (39-117) U/L Total Protein 6.2 (5.9-8.4) gm/dL Albumin 1.9 L (3.2-5.2) gm/dL Assessment and Plan (1) Abdominal wall abscess Status: Acute Assessment and plan: patient is clinically stable and improved on this the first postoperative day. We will increase Dilaudid to 1.5 mg every 2 hours as needed and will give Tylenol 1 g IV every 6 standing dose Current Visit: Yes (2) Constipation Status: Acute Current Visit: No - Time Spent With Patient Total time spent is greater than 50% in coordination of care (as documented) at patient's floor/unit and/or counseling patient:
[2017-02-02] MEDS: hydrOXYzine 25 MG TABLET PO SCH (21:31)
[2017-02-02] MEDS: TRAVOPROST OPHTH DROPS BOTTLE 2.5ML OU SCH (21:33)
[2017-02-03] MEDS: ACETAMINOPHEN 1,000 MG/100 ML BOTTLE IV SCH ×4 (05:45→23:17)
[2017-02-03] MEDS: PIPERACILLIN SODIUM/TAZOBACTAM 3.375 GM in DEXTROSE 5% IN WATER 50 ML IV SCH ×4 (05:45→23:17)
[2017-02-03] MEDS: 0.9 % SODIUM CHLORIDE 1,000 ML IV SCH ×3 (05:47→20:06)
[2017-02-03] MEDS: HYDROmorphone 2 MG/ML SYRINGE IV PRN ×2 (08:41→20:06)
[2017-02-03] MEDS: INSULIN LISPRO 1 UNIT/0.01 ML UNIT SQ SCH ×4 (09:42→20:59)
[2017-02-03] MEDS: PANTOPRAZOLE 40 MG VIAL IV SCH (09:43)
[2017-02-03] MEDS: VANCOMYCIN 1,000 MG in 0.9 % SODIUM CHLORIDE 250 ML IV SCH (10:30)
[2017-02-03] MEDS: ENOXAPARIN 40 MG/0.4 ML SYRINGE SQ SCH (10:30)
[2017-02-03] MEDS: INSULIN GLARGINE, HUMAN 1 UNIT/0.01 ML SQ SCH ×2 (10:31→21:01)
[2017-02-03] MEDS: VENLAFAXINE 150 MG CAP.XL.24H PO SCH (10:32)
[2017-02-03] MEDS: GABAPENTIN 300 MG CAPSULE PO SCH ×3 (10:32→20:57)
[2017-02-03] MEDS: sitaGLIPtin 100 MG TABLET PO SCH (10:32)
[2017-02-03] MEDS: 0.9 % SODIUM CHLORIDE 500 ML IV SCH (10:32)
[2017-02-03] MEDS: VENLAFAXINE 75 MG CAP.XL.24H PO SCH (10:32)
--- NOTE | 2017-02-03 11:01 | Surgical Pathology Report ---
HISTOLOGY SPECIMEN MICROSCOPIC DIAGNOSIS SOFT TISSUE, RECTUS MUSCLE FASCIA, EXCISION: -- SOFT TISSUE WITH SUPPURATIVE AND ISCHEMIC NECROSIS, SEE COMMENT. ([facility]:[email or web address]) COMMENT: Sections demonstrate soft tissue abscess and necrosis with associated bacterial overgrowth. Correlation with cultures and other clinical findings is recommended. CLINICAL HISTORY Abdominal abscess. PROCEDURAL IMPRESSION Colitis and sepsis. GROSS DESCRIPTION Received in formalin labeled with the patient information and further designated as necrotic rectus muscle fascia, are multiple nunez-hernandes to green-hernandes tissue fragments in aggregate 7.0 x 5.0 x 1.5 cm. Support Associate sections submitted - three cassettes. ([facility]:[email or web address]) Electronically Signed by: Edith Burkett D.O.
--- NOTE | 2017-02-03 12:35 | General Surgery Progress Note ---
Subjective Patient reports: feels better, pain is less, tolerating a regular diet, flatus, bowel movement, afebrile Narrative: Note initiated : 02/03/17 at 12:34 pm Service Date, if different from initiated Date: [] Patient: Rain Harden 56 y/o F admitted on 01/27/17 for colitis and sepsis. Chief Complaint: [patient is doing better, dressing change completed. discussed wound debridement in the a.m.] Objective Temp Pulse Resp BP Pulse Ox 97.4 F 97 H 18 148/77 94 02/03/17 06:58 02/03/17 03:40 02/03/17 06:58 02/03/17 06:58 02/03/17 07:14 - Additional Data Intake & Output - Last 24 hours: Intake & Output 02/01/17 02/02/17 02/03/17 02/04/17 05:59 05:59 05:59 05:59 Intake Total 4610 / 4610 6150 / 6150 3884 / 3884 467 / 467 Output Total 3150 / 3150 3375 / 3375 4075 / 4075 2400 / 2400 Balance 1460 / 1460 2775 / 2775 -191 / -191 -1933 / -1933 Weight 223 lb 230 lb 231 lb - General physical appearance well developed, well nourished, moderate distress, severe distress, moderate pain - Eyes PERRL - ENT no congestion - Neck no venous distension - Respiratory normal expansion, normal respiratory effort, clear to auscultation - Cardiovascular Cardiovascular exam: Present: normal rate and rhythm, RRR, +S1, +S2. Absent: JVD - Abdomen soft, tender (tenderness around incision but otherwise doing fine) - Integumentary no rash, no growths, no abnormal pigmentation - Neurologic normal coordination, normal sensation - Musculoskeletal normal gait, normal posture - Psychiatric oriented to time, oriented to person, oriented to place, speech is normal, memory intact - Labs 02/02/17 04:15 02/02/17 04:15 Assessment and Plan (1) Abdominal wall abscess Status: Acute Assessment and plan: schedule for debridement and wound vac placement in a.m. Current Visit: Yes (2) Constipation Status: Acute Assessment and plan: resolved Current Visit: No - Time Spent With Patient Total time spent is greater than 50% in coordination of care (as documented) at patient's floor/unit and/or counseling patient:
[2017-02-03] MEDS: hydrOXYzine 25 MG TABLET PO SCH (20:57)
[2017-02-03] MEDS: TRAVOPROST OPHTH DROPS BOTTLE 2.5ML OU SCH (21:04)
[2017-02-04] MEDS: 0.9 % SODIUM CHLORIDE 1,000 ML IV SCH ×3 (04:41→22:08)
[2017-02-04] MEDS: ACETAMINOPHEN 1,000 MG/100 ML BOTTLE IV SCH ×3 (05:27→17:13)
[2017-02-04] MEDS: PIPERACILLIN SODIUM/TAZOBACTAM 3.375 GM in DEXTROSE 5% IN WATER 50 ML IV SCH ×4 (05:27→23:57)
[2017-02-04] MEDS: INSULIN LISPRO 1 UNIT/0.01 ML UNIT SQ SCH ×4 (07:33→19:57)
[2017-02-04] MEDS: HYDROmorphone 2 MG/ML SYRINGE IV PRN ×6 (07:35→22:12)
[2017-02-04] MEDS: PANTOPRAZOLE 40 MG VIAL IV SCH (07:37)
[2017-02-04] MEDS ORDERED: DEXAMETHASONE 10 MG/ML VIAL IV ONE (08:25)
[2017-02-04] MEDS ORDERED: PROPOFOL 200 MG/20 ML VIAL IV ONE (08:25)
[2017-02-04] MEDS ORDERED: ePHEDrine 50 MG/ML AMPUL IV ONE (08:25)
[2017-02-04] MEDS ORDERED: PHENYLEPHRINE 10 MG/ML VIAL IV ONE (08:25)
[2017-02-04] MEDS ORDERED: MIDAZOLAM 5 MG/5 ML VIAL IV ONE (08:25)
[2017-02-04] MEDS ORDERED: fentaNYL 100 MCG/2 ML VIAL IV ONE (08:25)
[2017-02-04] MEDS ORDERED: GLYCOPYRROLATE 0.2 MG/ML VIAL IV ONE (08:25)
[2017-02-04] MEDS ORDERED: ROCURONIUM 10 MG/ML ML IV ONE (08:25)
[2017-02-04] MEDS ORDERED: LIDOCAINE HCL/PF 100 MG/5 ML SYRINGE IV ONE (08:25)
[2017-02-04] MEDS ORDERED: ONDANSETRON 4 MG/2 ML VIAL IV ONE (08:25)
[2017-02-04] MEDS ORDERED: NEOSTIGMINE 1 MG/ML VIAL IV ONE (08:25)
[2017-02-04] MEDS ORDERED: BENZOCAINE/MENTHOL 1 LOZENGE PO PRN (09:02)
[2017-02-04] MEDS ORDERED: diphenhydrAMINE 50 MG/ML VIAL IV PRN (09:02)
[2017-02-04] MEDS ORDERED: PROMETHAZINE 25 MG/ML VIAL IV PRN ×2 (09:02→10:13)
[2017-02-04] MEDS ORDERED: FLUMAZENIL 0.1 MG/ML ML IV PRN (09:02)
[2017-02-04] MEDS ORDERED: METHOCARBAMOL 1,000 MG/10 ML VIAL IV PRN (09:02)
[2017-02-04] MEDS ORDERED: HYDROmorphone 2 MG/ML SYRINGE IV PRN (09:02)
[2017-02-04] MEDS ORDERED: NALOXONE HCL 0.4 MG/ML VIAL IV PRN (09:02)
[2017-02-04] MEDS ORDERED: ATROPINE SULFATE 0.4 MG/ML VIAL IV PRN (09:02)
[2017-02-04] MEDS ORDERED: METOPROLOL TARTRATE 5 MG/5 ML VIAL IV PRN (09:02)
[2017-02-04] MEDS ORDERED: ONDANSETRON 4 MG/2 ML VIAL IV PRN (09:02)
[2017-02-04] MEDS ORDERED: ePHEDrine 50 MG/ML AMPUL IV PRN (09:02)
[2017-02-04] MEDS ORDERED: IPRATROPIUM/ALBUTEROL 3 ML AMPUL.NEB NEB PRN (09:02)
[2017-02-04] MEDS ORDERED: LACTATED RINGERS 1,000 ML IV SCH (09:15)
--- NOTE | 2017-02-04 09:23 | Brief Operative Note ---
Date of procedure: 02/04/17 Pre-op diagnosis: abscess and necrosis of lower abdominal wall Post-op diagnosis: same Procedure: EXCISIONAL DEBRIDEMENT AND APPLICATION OF WOUND VAC Grafts/Implants: No Anesthesia: GLMA Findings: RESIDUAL NECROSIS OF MUSCLE AND FASCIA Complications: none Surgeon: Emerson Jefferson Specimens Removed/Pathology: other (NECROTIC TISSUE DISCARDED)
[2017-02-04] MEDS: fentaNYL 100 MCG/2 ML VIAL IV PRN ×4 (09:42→09:53)
[2017-02-04] MEDS ORDERED: DEXTROSE 50% 50 ML VIAL IV PRN (10:13)
[2017-02-04] MEDS ORDERED: ACETAMINOPHEN 325 MG TABLET PO PRN (10:13)
[2017-02-04] MEDS ORDERED: BISACODYL 10 MG SUPP.RECT PR PRN (10:13)
[2017-02-04] MEDS: INSULIN GLARGINE, HUMAN 1 UNIT/0.01 ML SQ SCH ×2 (10:40→19:57)
[2017-02-04] MEDS: VENLAFAXINE 150 MG CAP.XL.24H PO SCH (10:40)
[2017-02-04] MEDS: sitaGLIPtin 100 MG TABLET PO SCH (10:40)
[2017-02-04] MEDS: VENLAFAXINE 75 MG CAP.XL.24H PO SCH (10:40)
[2017-02-04] MEDS: ENOXAPARIN 40 MG/0.4 ML SYRINGE SQ SCH (10:41)
[2017-02-04] MEDS: VANCOMYCIN 1,000 MG in 0.9 % SODIUM CHLORIDE 250 ML IV SCH ×2 (10:41→10:52)
[2017-02-04] MEDS: GABAPENTIN 300 MG CAPSULE PO SCH ×3 (10:41→19:48)
[2017-02-04] MEDS: hydrOXYzine 25 MG TABLET PO SCH (19:49)
[2017-02-04] MEDS ORDERED: ZOLPIDEM 5 MG TABLET PO PRN (21:00)
[2017-02-04] MEDS: TRAVOPROST OPHTH DROPS BOTTLE 2.5ML OU SCH (21:31)
[2017-02-05] MEDS: ACETAMINOPHEN 1,000 MG/100 ML BOTTLE IV SCH ×4 (00:34→18:11)
[2017-02-05] MEDS: HYDROmorphone 2 MG/ML SYRINGE IV PRN ×6 (04:02→20:53)
[2017-02-05] MEDS: 0.9 % SODIUM CHLORIDE 1,000 ML IV SCH ×4 (04:25→23:27)
[2017-02-05] MEDS: PIPERACILLIN SODIUM/TAZOBACTAM 3.375 GM in DEXTROSE 5% IN WATER 50 ML IV SCH ×3 (05:45→19:07)
[2017-02-05] MEDS: INSULIN LISPRO 1 UNIT/0.01 ML UNIT SQ SCH ×4 (07:33→20:39)
[2017-02-05] MEDS: PANTOPRAZOLE 40 MG VIAL IV SCH (07:39)
[2017-02-05] MEDS: VENLAFAXINE 150 MG CAP.XL.24H PO SCH (09:37)
[2017-02-05] MEDS: GABAPENTIN 300 MG CAPSULE PO SCH ×3 (09:37→20:38)
[2017-02-05] MEDS: ENOXAPARIN 40 MG/0.4 ML SYRINGE SQ SCH (09:38)
[2017-02-05] MEDS: VENLAFAXINE 75 MG CAP.XL.24H PO SCH (09:38)
[2017-02-05] MEDS: sitaGLIPtin 100 MG TABLET PO SCH (09:38)
[2017-02-05] MEDS: INSULIN GLARGINE, HUMAN 1 UNIT/0.01 ML SQ SCH ×2 (09:40→20:39)
[2017-02-05] MEDS: VANCOMYCIN 750 MG in 0.9 % SODIUM CHLORIDE 250 ML IV SCH ×2 (09:56→20:40)
[2017-02-05] MEDS: VANCOMYCIN 1,000 MG in 0.9 % SODIUM CHLORIDE 250 ML IV SCH (10:16)
--- NOTE | 2017-02-05 13:33 | General Surgery Progress Note ---
Subjective Patient reports: still having pain, pain is less, tolerating a regular diet, flatus, bowel movement, afebrile Narrative: Note initiated : 02/05/17 at 1:31 pm Service Date, if different from initiated Date: [] Patient: Rain Harden 56 y/o F admitted on 01/27/17 for colitis and sepsis. Chief Complaint: [Patient is doing well she has significant abdominal pain which seems to be related to the suction vac. She has been afebrile. She has tolerated diet without difficulty. She has moderate amount of bloody drainage in her wound VAC collection system.] Objective Temp Pulse Resp BP Pulse Ox 97.6 F 76 16 135/82 95 02/05/17 12:00 02/05/17 12:00 02/05/17 12:00 02/05/17 12:00 02/05/17 12:00 - Additional Data Intake & Output - Last 24 hours: Intake & Output 02/03/17 02/04/17 02/05/17 02/06/17 05:59 05:59 05:59 05:59 Intake Total 3884 / 3884 4529 / 4529 5040 / 5040 2080 / 2080 Output Total 4075 / 4075 7900 / 7900 3007 / 3007 1050 / 1050 Balance -191 / -191 -3371 / -3371 203 / 203 1030 / 1030 Weight 231 lb 226 lb 8 oz 230 lb - General physical appearance moderate distress, moderate pain - Eyes PERRL - ENT no congestion - Neck no venous distension - Respiratory normal respiratory effort, clear to auscultation - Cardiovascular Cardiovascular exam: Present: normal rate and rhythm, RRR, +S1, +S2. Absent: JVD - Abdomen tender, bowel sounds, distended (Abdomen is mildly distended but soft. The wound edges are healthy. There has been significant contraction of the wound over the past 2 days but this may be more related to the PICC badly panniculus that comprises the major portion of the wound.) - Integumentary no rash, no growths, no abnormal pigmentation - Neurologic normal coordination, normal sensation - Musculoskeletal normal gait, normal posture - Psychiatric oriented to time, oriented to person, oriented to place, speech is normal, memory intact - Labs 02/02/17 04:15 02/02/17 04:15 Assessment and Plan (1) Abdominal wall abscess Status: Acute Assessment and plan: Wound is healing nicely and effectiveness of wound VAC is apparent. will change wound VAC system tomorrow Current Visit: Yes (2) Constipation Status: Acute Assessment and plan: resolved Current Visit: No - Time Spent With Patient Total time spent is greater than 50% in coordination of care (as documented) at patient's floor/unit and/or counseling patient:
[2017-02-05] MEDS: hydrOXYzine 25 MG TABLET PO SCH (20:38)
[2017-02-05] MEDS: TRAVOPROST OPHTH DROPS BOTTLE 2.5ML OU SCH (20:40)
[2017-02-06] MEDS: ACETAMINOPHEN 1,000 MG/100 ML BOTTLE IV SCH ×4 (00:25→21:32)
[2017-02-06] MEDS: HYDROmorphone 2 MG/ML SYRINGE IV PRN ×3 (00:26→11:36)
[2017-02-06] MEDS: PIPERACILLIN SODIUM/TAZOBACTAM 3.375 GM in DEXTROSE 5% IN WATER 50 ML IV SCH ×4 (01:06→21:32)
[2017-02-06] MEDS: 0.9 % SODIUM CHLORIDE 1,000 ML IV SCH ×3 (05:38→18:38)
[2017-02-06] MEDS: INSULIN LISPRO 1 UNIT/0.01 ML UNIT SQ SCH ×3 (07:30→16:51)
[2017-02-06] MEDS: PANTOPRAZOLE 40 MG VIAL IV SCH (07:50)
[2017-02-06] MEDS: GABAPENTIN 300 MG CAPSULE PO SCH ×2 (09:30→14:46)
[2017-02-06] MEDS: VENLAFAXINE 75 MG CAP.XL.24H PO SCH (09:30)
[2017-02-06] MEDS: VENLAFAXINE 150 MG CAP.XL.24H PO SCH (09:31)
[2017-02-06] MEDS: sitaGLIPtin 100 MG TABLET PO SCH (09:31)
[2017-02-06] MEDS: INSULIN GLARGINE, HUMAN 1 UNIT/0.01 ML SQ SCH (09:32)
[2017-02-06] MEDS: ENOXAPARIN 40 MG/0.4 ML SYRINGE SQ SCH (09:32)
[2017-02-06] MEDS: VANCOMYCIN 750 MG in 0.9 % SODIUM CHLORIDE 250 ML IV SCH (10:45)
--- NOTE | 2017-02-06 12:51 | General Surgery Progress Note ---
Subjective Patient reports: still having pain, tolerating a regular diet, flatus, bowel movement Narrative: Note initiated : 02/06/17 at 12:48 pm Service Date, if different from initiated Date: [] Patient: Rain Harden 56 y/o F admitted on 01/27/17 for colitis and sepsis. Chief Complaint: [] Objective Temp Pulse Resp BP Pulse Ox 98.1 F 82 14 110/70 95 02/06/17 08:00 02/06/17 08:10 02/06/17 08:00 02/06/17 08:00 02/06/17 08:00 - Additional Data Intake & Output - Last 24 hours: Intake & Output 02/04/17 02/05/17 02/06/17 02/07/17 05:59 05:59 05:59 05:59 Intake Total 4529 / 4529 5040 / 5040 5420 / 5420 880 / 880 Output Total 7900 / 7900 3007 / 3007 2095 / 2095 1000 / 1000 Balance -3371 / -3371 2033 / 2033 3325 / 3325 -120 / -120 Weight 226 lb 8 oz 230 lb 232 lb 8 oz - General physical appearance moderate distress, moderate pain - Eyes PERRL - ENT no congestion - Neck no venous distension - Respiratory normal expansion, normal respiratory effort, clear to percussion, clear to auscultation - Cardiovascular Cardiovascular exam: Present: normal rate and rhythm, RRR, +S1, +S2. Absent: JVD - Abdomen tender, bowel sounds, distended (Mild distention persists. Good active bowel sounds. Wound base is beginning to granulate in and wound has contracted significantly. Wound dimensions 10.5 x 8.5 x 6 cm with 40% granulated base and 50% granulating wall ;there is minimal tunneling.) - Integumentary no rash, no growths, no abnormal pigmentation - Neurologic normal coordination - Musculoskeletal normal gait, normal posture - Psychiatric oriented to time, oriented to person, oriented to place, speech is normal, memory intact - Labs 02/02/17 04:15 02/02/17 04:15 Assessment and Plan (1) Abdominal wall abscess Status: Acute Assessment and plan: Wound is healing nicely . Patient is stable for discharge once her home wound VAC system is approved and delivered. Current Visit: Yes (2) Constipation Status: Acute Assessment and plan: resolved Current Visit: No - Time Spent With Patient Total time spent is greater than 50% in coordination of care (as documented) at patient's floor/unit and/or counseling patient:
--- NOTE | 2017-02-06 12:55 | Discharge Summary ---
Providers - Providers Patient information: Note initiated : 02/06/17 at 12:52 pm Service Date, if different from initiated Date: [] Patient: Rain Harden 56 y/o F admitted on 01/27/17 for colitis and sepsis. Chief Complaint: [] Date of admission: 01/27/17 Discharge date: 02/06/17 Attending physician: Emerson Jefferson Hospitalization Hospital course: 56-year-old female who was referred from the [facility] clinic and emergency room for evaluation of a draining left sided perineal lesion. She has a history of greater than 1 month of pain in her left perineum. She underwent incision and drainage of an abscess on 02 January. She continued to have a large volume of drainage. Over the past 2 weeks before admission she noted increased pain and swelling in her suprapubic area and her right lower abdomen. CT scan showed an inflammatory lesion at the pubic symphysis extending into the deep subcutaneous tissue. When seen in the office the patient appeared to be in severe distress and septic she was febrile and had oxygen saturation saturation of 88% on room air and a heart rate of 140. She was admitted and started on IV antibiotics consisting of vancomycin and Zosyn. She was treated 3 days but a follow-up CT showed progression of the inflammatory process with abscess formation. She underwent excisional debridement and drainage of the area which extended down to the rectus fascia and involved the greater portion of the pyramidalis muscle and at its insertion into the pubic symphysis. All of this was debrided down to the pubic symphysis. The cortex of the pubic bone did not appear to be involved. Cultures were taken but the culture results are somewhat questionable. It grew out a gram-negative bacillus and a lactobacillus species. She was continued on antibiotics and the wound was re- debrided 04 February. More necrotic tissue was removed and the wound was felt to be clean enough for wound VAC placement. Wound VAC was changed today and there is good clearing of the fibrinous exudate at the base with resolution of the fibrinous exudate of the wall of the cavity. The patient has been afebrile and it is felt that she is stable enough for discharge home with home health management and follow-up in the office in about every 10 days. Discharge diagnosis: Necrotizing infection with abscess lower abdominal wall Secondary discharge diagnosis: Perineal abscess Diabetes mellitus Severe constipation Reason for admission: Abdominal wall abscess with sepsis Procedures: January 24 exploration of abdominal wall with excision of necrotic fascia muscle and fat and drainage of large abscess 04 February 2017 excisional debridement of abdominal wall abscess including muscle fascia and fat Pertinent studies/significant findings: CT of abdomen and pelvis 2 Complications: None Exam Temp Pulse Resp BP Pulse Ox 98.1 F 82 14 110/70 95 02/06/17 08:00 02/06/17 08:10 02/06/17 08:00 02/06/17 08:00 02/06/17 08:00 - General physical appearance well developed, well nourished, no distress - Eyes PERRL, normal ocular movement - ENT normal pinna, normal nares, normal mucosa, no hearing loss, no congestion - Head Head exam IM: Present: atraumatic, normocephalic - Neck no masses, no bruits, trachea midline, no lymphadectomy, no venous distension - Cardiovascular Cardiovascular exam IM: Present: normal rate and rhythm - Respiratory normal expansion, normal respiratory effort, clear to percussion, clear to auscultation - Abdomen Abdomen: Present: soft, tender, bowel sounds, wound (Healing lower abdominal wound with wound VAC in place) Hernia: Present: none - Genitourinary Present: normal external genitalia - Rectum Rectum: Present: normal sphincter tone, no hemorrhoids, no tenderness, no masses , no bleeding, other (Small sinus tract left medial buttock) - Integumentary Present: no rash, no growths, no abnormal pigmentation - Neurologic Present: normal coordination, normal sensation - Musculoskeletal Present: normal gait, normal posture - Psychiatric Present: oriented to time, oriented to person, oriented to place, speech is normal, memory intact Discharge Plan - Patient/Caregiver Discharge Instructions Activity: increase activity as tolerated Diet: Consistent Carbohydrate Prescriptions: Amoxicillin/Clavulanate [Augmentin] 400 mg PO Q12H #20 ml - Follow up Plan Follow up with: Emerson Jefferson MD [Physician] - 02/16/17 8:30 am Disposition: Home Health Service Prognosis: Good Rehab Potential: Good I certify that the patient requires SNF services.: No Overall status at discharge: patient is not back to baseline Pending Studies Resuscitation Status Full Code Diet Consistent Carbohydrate Diet Start ThuFeb 04 Lunch Diagnostic Test (Pha) (Accu-Chek) 1 each FS ACHS ISMAEL Last Admin: 02/06/17 11:30 Dose: 1 each Admin: 02/06/17 08:37 Dose: Not Given Admin: 02/05/17 20:39 Dose: 1 each Admin: 02/05/17 16:40 Dose: 1 each Admin: 02/05/17 11:43 Dose: 1 each Admin: 02/05/17 07:31 Dose: 1 each Admin: 02/04/17 19:56 Dose: 1 each Admin: 02/04/17 17:13 Dose: 1 each Admin: 02/04/17 11:46 Dose: 1 each Enoxaparin Sodium (Lovenox) 40 mg SQ DAILY [facility] Last Admin: 02/06/17 09:32 Dose: 40 mg Admin: 02/05/17 09:38 Dose: 40 mg Gabapentin (Neurontin) 300 mg PO TID [facility] Last Admin: 02/06/17 09:30 Dose: 300 mg Admin: 02/05/17 20:38 Dose: 300 mg Admin: 02/05/17 15:23 Dose: 300 mg Admin: 02/05/17 09:37 Dose: 300 mg Admin: 02/04/17 19:48 Dose: 300 mg Admin: 02/04/17 15:22 Dose: 300 mg Hydromorphone HCl (Dilaudid) 1.5 mg IV Q2HP PRN PRN Reason: Pain Last Admin: 02/06/17 11:36 Dose: 1.5 mg Admin: 02/06/17 07:50 Dose: 1.5 mg Admin: 02/06/17 00:26 Dose: 1.5 mg Admin: 02/05/17 20:53 Dose: 1.5 mg Admin: 02/05/17 16:35 Dose: 1.5 mg Admin: 02/05/17 14:17 Dose: 1.5 mg Admin: 02/05/17 12:00 Dose: 1.5 mg Admin: 02/05/17 09:47 Dose: 1.5 mg Admin: 02/05/17 04:02 Dose: 1.5 mg Admin: 02/04/17 22:12 Dose: 1.5 mg Admin: 02/04/17 19:48 Dose: 1.5 mg Admin: 02/04/17 17:12 Dose: 1.5 mg Admin: 02/04/17 13:27 Dose: 1.5 mg Admin: 02/04/17 10:39 Dose: 1.5 mg Hydroxyzine HCl (Atarax) 25 mg PO HS ISMAEL Last Admin: 02/05/17 20:38 Dose: 25 mg Admin: 02/04/17 19:49 Dose: 25 mg Sodium Chloride (Sodium Chloride 0.9%) 1,000 mls @ 125 mls/hr IV .Q8H ISMAEL Last Admin: 02/06/17 05:38 Dose: Not Given Admin: 02/05/17 23:27 Dose: 125 mls/hr Admin: 02/05/17 18:12 Dose: Not Given Infusion: 02/05/17 17:43 Dose: 125 mls/hr Admin: 02/05/17 09:43 Dose: 125 mls/hr Infusion: 02/05/17 09:42 Dose: 125 mls/hr Admin: 02/05/17 04:25 Dose: Not Given Admin: 02/04/17 22:08 Dose: 125 mls/hr Infusion: 02/04/17 18:54 Dose: 125 mls/hr Admin: 02/04/17 10:54 Dose: 125 mls/hr Acetaminophen (Ofirmev) 1,000 mg in 100 mls @ 200 mls/hr IV Q6H ISMAEL Last Admin: 02/06/17 12:45 Dose: 200 mls/hr Infusion: 02/06/17 06:05 Dose: 200 mls/hr Admin: 02/06/17 05:35 Dose: 200 mls/hr Infusion: 02/06/17 01:08 Dose: 200 mls/hr Admin: 02/06/17 00:25 Dose: 200 mls/hr Infusion: 02/05/17 18:45 Dose: 200 mls/hr Admin: 02/05/17 18:11 Dose: 200 mls/hr Infusion: 02/05/17 13:01 Dose: 200 mls/hr Admin: 02/05/17 12:31 Dose: 200 mls/hr Infusion: 02/05/17 06:52 Dose: 200 mls/hr Admin: 02/05/17 06:22 Dose: 200 mls/hr Infusion: 02/05/17 01:04 Dose: 200 mls/hr Admin: 02/05/17 00:34 Dose: 200 mls/hr Infusion: 02/04/17 17:45 Dose: 200 mls/hr Admin: 02/04/17 17:13 Dose: 200 mls/hr Infusion: 02/04/17 12:11 Dose: 200 mls/hr Admin: 02/04/17 11:41 Dose: 200 mls/hr Piperacillin Sod/Tazobactam (Sod 3.375 gm/ Dextrose) 50 mls @ 100 mls/hr IV Q6H [facility] Last Admin: 02/06/17 06:13 Dose: 100 mls/hr Infusion: 02/06/17 01:40 Dose: 100 mls/hr Admin: 02/06/17 01:06 Dose: 100 mls/hr Infusion: 02/05/17 19:37 Dose: 100 mls/hr Admin: 02/05/17 19:07 Dose: 100 mls/hr Infusion: 02/05/17 12:20 Dose: 100 mls/hr Admin: 02/05/17 11:49 Dose: 100 mls/hr Infusion: 02/05/17 06:15 Dose: 100 mls/hr Admin: 02/05/17 05:45 Dose: 100 mls/hr Infusion: 02/05/17 00:27 Dose: 100 mls/hr Admin: 02/04/17 23:57 Dose: 100 mls/hr Infusion: 02/04/17 18:35 Dose: 100 mls/hr Admin: 02/04/17 18:04 Dose: 100 mls/hr Infusion: 02/04/17 12:40 Dose: 100 mls/hr Admin: 02/04/17 12:09 Dose: 100 mls/hr Vancomycin HCl 750 mg/ Sodium (Chloride) 250 mls @ 250 mls/hr IV Q12H [facility] Last Admin: 02/06/17 10:45 Dose: 250 mls/hr Infusion: 02/05/17 21:45 Dose: 250 mls/hr Admin: 02/05/17 20:40 Dose: 250 mls/hr Infusion: 02/05/17 10:56 Dose: 250 mls/hr Admin: 02/05/17 09:56 Dose: 250 mls/hr Insulin Glargine (Lantus) 30 unit SQ BID [facility] Last Admin: 02/06/17 09:32 Dose: 1 unit Admin: 02/05/17 20:39 Dose: 30 unit Admin: 02/05/17 09:40 Dose: 30 unit Admin: 02/04/17 19:57 Dose: 30 unit Insulin Human Lispro (Humalog) 0 unit SQ ACHS ISMAEL PRN Reason: Protocol Last Admin: 02/06/17 11:32 Dose: Not Given Admin: 02/05/17 20:39 Dose: Not Given Admin: 02/05/17 16:40 Dose: Not Given Admin: 02/05/17 11:43 Dose: Not Given Admin: 02/05/17 07:33 Dose: Not Given Admin: 02/04/17 19:57 Dose: 10 unit Admin: 02/04/17 17:13 Dose: 8 unit Admin: 02/04/17 11:47 Dose: Not Given Pantoprazole Sodium (Protonix) 40 mg IV QAMAC [facility] Last Admin: 02/06/17 07:50 Dose: 40 mg Admin: 02/05/17 07:39 Dose: 40 mg Sitagliptin Phosphate (Januvia) 100 mg PO DAILY [facility] Last Admin: 02/06/17 09:31 Dose: 100 mg Admin: 02/05/17 09:38 Dose: 100 mg Travoprost (Travatan Z Ophth Drops) 1 gtt OU HS [facility] Last Admin: 02/05/17 20:40 Dose: 1 gtt Admin: 02/04/17 21:31 Dose: Venlafaxine HCl (Effexor Xr) 150 mg PO DAILY [facility] Last Admin: 02/06/17 09:31 Dose: 150 mg Admin: 02/05/17 09:37 Dose: 150 mg Venlafaxine HCl (Effexor Xr) 75 mg PO DAILY [facility] Last Admin: 02/06/17 09:30 Dose: 75 mg Admin: 02/05/17 09:38 Dose: 75 mg Shift Summary 02/06/17 04:24 Shift Summary by Fang Schulz Up with SBA to BR, ambulating well, has generalized weakness. Voiding adequate amts since Parker removal yesterday. [place] to lower mid abd @125 cont suction. Abscess to left labia with small drainage. c/o burning abd pain, has ismael ofirmev and PRN dilaudid. IV to right wrist with NS@125. Plans to DC with HH today. Initialized on 02/06/17 04:24 - END OF NOTE
[2017-02-06] MEDS ORDERED: oxyCODONE/APAP 10/325MG TABLET PO PRN (19:05)
[2017-02-06] MEDS ORDERED: oxyCODONE/APAP 10/325MG TABLET PO ONE (19:17)
== END 2017-02-06 20:13 | disposition home health service (06) | DRG 463 ==
LOC: MEDSUR 11:47
PROVIDERS: ADMIT Family Medicine Adult Medicine; ATTEND Family Medicine Adult Medicine
PROC: IDWOUND (2017-01-31 08:28)

== ENCOUNTER 2017-08-13 09:36 | Inpatient (IN) ==
[2017-08-13] MEDS ORDERED: ACETAMINOPHEN 325 MG TABLET PO PRN (10:51)
[2017-08-13] MEDS ORDERED: ONDANSETRON 4 MG/2 ML VIAL IV PRN (10:51)
[2017-08-13] MEDS ORDERED: ZOLPIDEM 5 MG TABLET PO PRN (10:51)
[2017-08-13] MEDS: PIPERACILLIN SODIUM/TAZOBACTAM 3.375 GM in DEXTROSE 5% IN WATER 50 ML IV SCH ×3 (12:00→23:52)
[2017-08-13] MEDS: 0.9 % SODIUM CHLORIDE 1,000 ML IV SCH (12:00)
[2017-08-13 12:30] LABS: Appearance,Urine CLEAR; Bacteria,Urine 0 /hpf (0); Bilirubin,Urine NEG (NEG); Color,Urine STRAW; Glucose,Urine (UA) >=500 mg/dL (NEG); Leukocyte Esterase,Urine NEG /uL (NEG); Mucus,Urine FEW /hpf (0); Nitrate,Urine NEG (NEG); Protein,Urine NEG (NEG); Specific Gravity,Urine 1.017 (1.000-1.035); Urine Blood NEG mg/dL (<0.03); Urine RBC < 1 /hpf (0-1); Urine Squamous Epithelial Cell < 1 /hpf (0-4); Urine WBC 1 /hpf (0-4); Urobilinogen,Urine NEG (NEG)
[2017-08-13 12:38] LABS: ALT/SGPT < 5 U/l (0-40); Albumin 2.8 gm/dL (3.2-5.2); Albumin/Globulin Ratio 0.5 (1.0-2.3); Alkaline Phosphatase 102 U/L (39-117); Bilirubin,Direct < 0.2 mg/dL (0.0-0.3); Blood Urea Nitrogen 8 mg/dl (6-20); Gamma Glutamyl Transpeptidase 27 U/L (5-36); Magnesium 1.7 mg/dL (1.6-2.5)
[2017-08-13] MEDS: 0.9 % SODIUM CHLORIDE 10 ML SYRINGE IV SCH ×2 (15:05→22:36)
--- NOTE | 2017-08-13 16:26 | General Surg History&Physical ---
History of Present Illness Patient information: Note initiated : 08/13/17 at 4:24 pm Service Date, if different from initiated Date: [] Patient: Rain Harden a 57 y/o F admitted on 08/13/17 for osteomyelitis of the pubic symphysis w/recurring . Chief Complaint: [] HPI: Ms. Harden is a 57 year old F who is admitted for abdominal wall abscess recurrence. She had a CT of the abdomen and pelvis done on 11 August 2017 which showed an abscess within Camper's fascia which had significantly increased from a CT that was done 2 months previously. The abscess today measures 9.2 x 4.5 cm and appears to be superficial to the pubic symphysis with secondary erosion and infection of the pubic symphysis. There are also erosions in the right inferior and left superior pubic rami. The abscess drained through a sinus tract in the lower abdominal midline with associated gas bubbles. The wall surrounding the sinus tract was felt to be fibrotic. The patient is having increasingly severe pain which has become uncontrolled as an outpatient. Though she does not appear to be septic it is felt that she will need to be started on antibiotic treatment and the plan will be made to try to get her treated at a tertiary center where she can have a multifaceted coordination of care to try to resolve her problem once and for all. She has been symptomatic since early December 2016. The patient was referred from the [facility] service in the emergency room for evaluation of a left sided perineal lesion on 27 January 2017. At that time she had greater than a 1 month history of left perineal pain. She underwent incision and drainage of what was thought to be an Bartholin's abscess on 02 Jan 2017 over the 2 weeks prior to my initial evaluation she noted increased pain and swelling in the suprapubic area in her right lower abdomen. CT scan showed an inflammatory lesion at the pubic symphysis extending into the deep subcutaneous tissue. When seen in the office initially she was septic and tachycardic. She was admitted started on Vancocin and Zosyn and after stabilization she underwent excisional debridement and drainage of the area which extended down to the rectus fascia and involved the pyramidalis muscle at its insertion into the pubic symphysis. All of this was debrided. The cortex of the pubic bone did not appear to be involved at that time. Cultures from the necrotic tissue grew out a gram-negative bacillus and a lactobacillus species she was really debrided on 04 February 2017 and more necrotic tissue was removed. The wound was felt to be clean enough and a wound VAC was placed. She was subsequently discharged home on January and followed in an outpatient. She had follow-up CT of the abdomen and pelvis on 05 March which revealed a smaller abscess which measured 1.4 x 3.7 cm. Extending from this pocket there was a tract which followed along the inferior pubic rami. This tract was 4 mm in thickness and 5 cm in length. She was continued on antibiotics and wound VAC therapy. Over the next 2 months her wound finally healed and the wound VAC system was discontinued and she was placed on regular dressings.. Based on her previous cultures she had been treated with meropenem and clindamycin. The patient appear to be stabilizing on her wound appeared to be granulated and until May when she represented to the emergency room with a four-day history of pain in her legs and thighs with reopening of the left labial abscess. She also felt fever chills low back pain and follow-up CT scan revealed an elongated L shaped abscess in the deep central Fascia which communicated with the sinus tract that extended down to the pubic symphysis. It was felt that she had osteomyelitis at that time and she was referred to [facility] where she was treated with reexploration and debridement on 10 June 2017. A wound VAC system was placed and she was referred back to us for follow-up. The patient had been on Humira and exenatide. These were discontinued and she was continued on oral antibiotics. Since June she had a more rapid closure of the fistulous tract and had a very superficial area of viable granulation tissue without drainage 2 weeks ago. She represented to the office with worsening pain and now CT shows the changes as noted above. The patient is admitted and will be made to try to get more input to try to see if this area can be radically debrided and healed. I question whether or not a muscle flap in this area would be of benefit to try to augment healing. She has been off her immunosuppressive drugs for 2 months but she still has marginally controlled diabetes mellitus. Review of Systems - Constitutional chills, fatigue, fever(s), malaise, night sweats, weight loss - EENT Eyes: bilateral: blurred vision Nose, mouth and throat: headache(s), no vertigo - Cardiovascular lightheadedness, palpatations, rapid heart rate - Respiratory no cough, no dyspnea on exertion, no wheezing - Gastrointestinal abdominal pain, change in bowel habits, nausea, no melena, no tenesmus, no vomiting - Genitourinary Genitourinary: urinary frequency, urinary hesitancy, urinary urgency - Musculoskeletal arthralgias, stiffness - Integumentary no hirsutism, no pruritus, no rash - Neurological abnormal gait, dizziness, headache(s), weakness - Psychiatric anxiety, depression - Endocrine fatigue, palpitations - Hematologic/Lymphatic no easy bleeding, no easy bruising, no lymphadenopathy - Allergic/Immunologic tongue swelling, throat swelling, wheezing, lip swelling Past History Past medical history: Diabetes mellitus type 2 uncontrolled Immunosuppressed state Anemia of chronic disease Rheumatoid arthritis Past surgical history: Incision and drainage of Bartholin's abscess Exploration of abdominal wall with drainage of abscess and debridement of anterior rectus muscle fascial necrosis Replete debridement of abdominal wall abscess Past social history: Never smoker Does not drink alcohol Does not use recreational drugs Medications and Allergies Home Medications Medication Instructions Recorded Confirmed Type Ergocalciferol (Vitamin D2) 50,000 unit PO WEEKLY 01/27/17 08/13/17 History [Vitamin D2] Fluticasone Propionate [Flonase] 2 spray NS DAILY 01/27/17 08/13/17 History Gabapentin [Neurontin] 300 mg PO TID 01/27/17 08/13/17 History Insulin Detemir [Levemir Flextouch] 30 unit SQ BID 01/27/17 08/13/17 History Lubricant Eye Drops 1 gtt OU TIDP PRN 01/27/17 08/13/17 History Magnesium Oxide 420 mg PO TID 01/27/17 08/13/17 History Potassium Chloride [Kdur] 10 meq PO DAILY 01/27/17 08/13/17 History Simvastatin [Zocor] 40 mg PO HS 01/27/17 08/13/17 History Travoprost Ophth Drops [Travatan Z 1 gtt OU HS 01/27/17 08/13/17 History Ophth Drops] Venlafaxine HCl [Venlafaxine HCl 225 mg PO DAILY 01/27/17 08/13/17 History ER] hydrOXYzine PAMOATE [Hydroxyzine 25 mg PO HS 01/27/17 08/13/17 History Pamoate] hexamethyldisiloxane-acrylate See Dose Instructions .ROUTE 02/23/17 08/13/17 Rx copolymers towelette .MEDSUPPLY #100 towel swab See Dose Instructions .ROUTE 02/23/17 08/13/17 Rx .MEDSUPPLY #50 each 1 tab PO QDAY 03/02/17 08/13/17 History vitamin,calcium,[id number] acid tablet insulin lispro 100 unit/mL 2 - 4 unit SUB-Q TID PRN ml 06/18/17 08/13/17 History subcutaneous solution hydrocodone 10 mg-acetaminophen 1 tab PO Q6H #90 tab 07/20/17 08/13/17 Rx 325 mg tablet albuterol sulfate HFA 90 1 puff INHALATION .Q4-6H PRN g 08/05/17 08/13/17 History mcg/actuation aerosol inhaler cyclobenzaprine 10 mg tablet 10 mg PO QHS PRN tab 08/05/17 08/13/17 History doxycycline monohydrate 100 mg 100 mg PO BID 08/05/17 08/13/17 History capsule lancets See Dose Instructions .ROUTE 08/05/17 08/13/17 History .MEDSUPPLY #50 each multivitamin with minerals capsule 1 cap PO QDAY 08/05/17 08/13/17 History pen needle, diabetic MISCELLANE 08/05/17 08/13/17 History white petrolatum-mineral oil 1 applic OPHTHALMIC QHS PRN 08/05/17 08/13/17 History metFORMIN HCL [Metformin HCl ER] 500 mg PO BIDCC 08/14/17 08/14/17 History Allergies Allergy/AdvReac Type Severity Reaction Status Date / Time sulfamethoxazole Allergy Severe Shortness Verified 08/13/17 11:48 [From ] of breath trimethoprim [From ] Allergy Severe Shortness Verified 08/13/17 11:48 of breath morphine Allergy Intermediate Wheezing Verified 08/13/17 11:48 aspirin Allergy Mild Hives Verified 08/13/17 11:48 Sulindac Allergy Mild Rash Verified 08/13/17 11:48 Exam Temp Pulse Resp BP Pulse Ox 97.6 F 95 H 18 145/79 98 08/13/17 12:00 08/13/17 10:40 08/13/17 12:00 08/13/17 12:00 08/13/17 12:00 - General physical appearance well developed, well nourished, no distress - Eyes PERRL, normal ocular movement - ENT normal pinna, normal nares, normal mucosa, no hearing loss, no congestion - Head Head exam IM: Present: atraumatic, normocephalic - Neck no masses, no bruits, trachea midline, no lymphadectomy, no venous distension - Cardiovascular Cardiovascular exam IM: Present: normal rate and rhythm - Respiratory normal expansion, normal respiratory effort, clear to percussion, clear to auscultation - Abdomen Abdomen: Present: soft, tender, bowel sounds (Obese nondistended upper abdomen with out significant tenderness and with good active bowel sounds; lower midline suprapubic fistulous track with copious purulent drainage and surrounding induration but no erythema or cellulitis) Hernia: Present: none - Genitourinary Present: normal external genitalia, other (Chronically thickened granulated fistulous opening left lower labia) - Rectum Rectum: Present: normal sphincter tone, no hemorrhoids, no tenderness, no masses , no bleeding - Integumentary Present: no rash, no growths, no abnormal pigmentation - Neurologic Present: normal coordination, normal sensation - Musculoskeletal Present: normal gait, normal posture - Psychiatric Present: oriented to time, oriented to person, oriented to place, speech is normal, memory intact Assessment and Plan (1) Osteomyelitis of symphysis pubis Start vancomycin and Zosyn pending cultures daily dressing changes arrange for transfer to tertiary center Status: Acute (2) 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
[2017-08-13] MEDS ORDERED: DEXTROSE 31 GM ORAL.SUSP PO PRN (18:55)
[2017-08-13] MEDS ORDERED: DEXTROSE 50% 50 ML VIAL IV PRN (18:55)
[2017-08-13] MEDS: INSULIN LISPRO 1 UNIT/0.01 ML UNIT SQ SCH ×2 (19:21→21:40)
[2017-08-13] MEDS: SIMVASTATIN 40 MG TABLET PO SCH (21:48)
[2017-08-13] MEDS: hydrOXYzine 25 MG TABLET PO SCH (21:48)
[2017-08-13] MEDS: CYCLOBENZAPRINE 10 MG TABLET PO PRN (21:48)
[2017-08-13] MEDS: GABAPENTIN 300 MG CAPSULE PO SCH (21:48)
[2017-08-13] MEDS: oxyCODONE/APAP 5/325MG TABLET PO PRN (21:55)
[2017-08-13] MEDS: DOCUSATE SODIUM 100 MG CAPSULE PO SCH (21:56)
[2017-08-14] MEDS: 0.9 % SODIUM CHLORIDE 1,000 ML IV SCH ×3 (02:35→21:41)
[2017-08-14] MEDS: oxyCODONE/APAP 5/325MG TABLET PO PRN ×4 (04:32→22:58)
[2017-08-14] MEDS: 0.9 % SODIUM CHLORIDE 10 ML SYRINGE IV SCH ×3 (05:01→21:32)
[2017-08-14] MEDS: PIPERACILLIN SODIUM/TAZOBACTAM 3.375 GM in DEXTROSE 5% IN WATER 50 ML IV SCH ×4 (05:01→23:31)
[2017-08-14 06:57] LABS: Mean Cell Volume 82.8 fL (80.0-100.0); Mean Corpuscular HGB Conc 32.3 g/dL (31.0-36.0); Mean Corpuscular Hemoglobin 26.7 pg (26.0-34.0); Platelet Count 467 K/mcL (140-440); RBC 3.77 M/mcL (4.00-5.20); Red Cell Distribution Width 16.2 % (11.5-14.5)
[2017-08-14 07:25] LABS: ALT/SGPT < 5 U/l (0-40); Albumin 2.5 gm/dL (3.2-5.2); Albumin/Globulin Ratio 0.6 (1.0-2.3); Alkaline Phosphatase 82 U/L (39-117); Bilirubin,Direct < 0.2 mg/dL (0.0-0.3); Blood Urea Nitrogen 8 mg/dl (6-20); Gamma Glutamyl Transpeptidase 18 U/L (5-36); Magnesium 1.8 mg/dL (1.6-2.5); Uric Acid 1.4 mg/dL (2.5-8.0)
[2017-08-14 07:38] LABS: Anisocytosis 1+ (NONE SEEN); Band Neutrophils % 1 % (0-10); Eosinophils % (Manual) 1 % (0-7); Lymphocytes % 38 % (15-49); Monocytes % (Manual) 6 % (1-12); Platelet Estimate INCREASED (NORMAL); RBC Morphology ABNORM (NORMAL); Segmented Neutrophils % 54 % (38-78)
[2017-08-14] MEDS: INSULIN LISPRO 1 UNIT/0.01 ML UNIT SQ SCH ×5 (08:48→23:31)
[2017-08-14] MEDS: GABAPENTIN 300 MG CAPSULE PO SCH ×3 (08:49→21:31)
[2017-08-14] MEDS: DOCUSATE SODIUM 100 MG CAPSULE PO SCH ×2 (08:49→21:31)
[2017-08-14] MEDS ORDERED: ALBUTEROL SULFATE 1 PUFF INHALER INH PRN (10:42)
[2017-08-14] MEDS ORDERED: CYCLOBENZAPRINE 10 MG TABLET PO PRN (10:42)
--- NOTE | 2017-08-14 12:25 | General Surgery Progress Note ---
Subjective Patient reports: still having pain, tolerating a regular diet, flatus, bowel movement, afebrile Narrative: Note initiated : 08/14/17 at 12:25 pm Service Date, if different from initiated Date: [] Patient: Rain Harden 57 y/o F admitted on 08/13/17 for Osteomyelitis of the Pubic Symphysis w/recurring . Chief Complaint: [Patient states that she feels better. She still has moderate amount of pain and there is continued copious drainage which is more purulent.] Objective Temp Pulse Resp BP Pulse Ox 98.3 F 96 H 16 114/62 94 08/14/17 11:37 08/14/17 04:00 08/14/17 11:37 08/14/17 11:37 08/14/17 11:37 - Additional Data Intake & Output - Last 24 hours: Intake & Output 08/12/17 08/13/17 08/14/17 08/15/17 05:59 05:59 05:59 05:59 Intake Total 3330 / 3330 Output Total 850 / 850 Balance 2480 / 2480 Weight 182 lb - General physical appearance no distress, moderate pain, chronically ill - Eyes PERRL - ENT no congestion - Neck no venous distension - Respiratory normal respiratory effort, clear to auscultation - Cardiovascular Cardiovascular exam: Present: normal rate and rhythm, RRR, +S1, +S2. Absent: JVD - Abdomen tender (Tenderness around the fistulous tract in the lower abdomen but no progression of cellulitis) - Genitourinary other ( moderate amount of purulent drainage from perineal wound but no increased induration or cellulitis) - Integumentary no rash, no growths, no abnormal pigmentation - Neurologic normal coordination, normal sensation - Musculoskeletal normal gait, normal posture - Psychiatric oriented to time, oriented to person, oriented to place, speech is normal, memory intact - Labs 08/14/17 04:36 08/14/17 04:36 Diabetes panel 08/13/17 08/14/17 Range/Units 11:11 04:36 Sodium 132 L 138 (133-145) mmol/L Potassium 4.2 4.0 (3.3-5.1) mmol/L Chloride 93 L 102 (96-108) mmol/L Carbon Dioxide 24 23 (22-30) mmol/L BUN 8 8 (6-20) mg/dl Creatinine 0.6 0.5 L (0.6-1.1) mg/dl Glucose 423 H 289 H (70-105) mg/dL Calcium 9.0 8.8 (8.6-10.4) mg/dl AST 10 9 (0-37) U/l ALT < 5 < 5 (0-40) U/l Alkaline Phosphatase 102 82 (39-117) U/L Total Protein 7.9 7.0 (5.9-8.4) gm/dL Albumin 2.8 L 2.5 L (3.2-5.2) gm/dL Triglycerides 99 122 (<150) mg/dl Calcium panel 08/13/17 08/14/17 Range/Units 11:11 04:36 Calcium 9.0 8.8 (8.6-10.4) mg/dl Phosphorus 3.6 3.1 (2.7-4.5) mg/dL Albumin 2.8 L 2.5 L (3.2-5.2) gm/dL Pituitary panel 08/13/17 08/14/17 Range/Units 11:11 04:36 Sodium 132 L 138 (133-145) mmol/L Potassium 4.2 4.0 (3.3-5.1) mmol/L Chloride 93 L 102 (96-108) mmol/L Carbon Dioxide 24 23 (22-30) mmol/L BUN 8 8 (6-20) mg/dl Creatinine 0.6 0.5 L (0.6-1.1) mg/dl Glucose 423 H 289 H (70-105) mg/dL Calcium 9.0 8.8 (8.6-10.4) mg/dl Adrenal panel 08/13/17 08/14/17 Range/Units 11:11 04:36 Sodium 132 L 138 (133-145) mmol/L Potassium 4.2 4.0 (3.3-5.1) mmol/L Chloride 93 L 102 (96-108) mmol/L Carbon Dioxide 24 23 (22-30) mmol/L BUN 8 8 (6-20) mg/dl Creatinine 0.6 0.5 L (0.6-1.1) mg/dl Glucose 423 H 289 H (70-105) mg/dL Calcium 9.0 8.8 (8.6-10.4) mg/dl Total Bilirubin 0.2 0.2 (0.0-1.0) mg/dL AST 10 9 (0-37) U/l ALT < 5 < 5 (0-40) U/l Alkaline Phosphatase 102 82 (39-117) U/L Total Protein 7.9 7.0 (5.9-8.4) gm/dL Albumin 2.8 L 2.5 L (3.2-5.2) gm/dL Assessment and Plan (1) Osteomyelitis of symphysis pubis Status: Acute Assessment and plan: Continue present antibiotic therapy Continue to try to arrange for transfer to tertiary center Current Visit: Yes (2) 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 Assessment and plan: Continue present antibiotic therapy Current Visit: No (3) Moderate major depression Status: Chronic Current Visit: No (4) Essential hypertension Status: Chronic Current Visit: No (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
[2017-08-14] MEDS: CYCLOBENZAPRINE 10 MG TABLET PO PRN (14:48)
[2017-08-14] MEDS ORDERED: GABAPENTIN 300 MG CAPSULE PO SCH (15:00)
[2017-08-14] MEDS: HYDROmorphone 2 MG/ML SYRINGE IV PRN (15:05)
[2017-08-14] MEDS: MAGNESIUM OXIDE 400 MG TABLET PO SCH ×2 (15:06→21:31)
[2017-08-14] MEDS: metFORMIN 500 MG TAB.XL.24H PO SCH (17:39)
[2017-08-14] MEDS ORDERED: HYDROXYZINE PAMOATE 25 MG PO SCH (21:00)
[2017-08-14] MEDS: INSULIN GLARGINE, HUMAN 1 UNIT/0.01 ML SQ SCH (21:30)
[2017-08-14] MEDS: SIMVASTATIN 40 MG TABLET PO SCH (21:31)
[2017-08-14] MEDS: hydrOXYzine 25 MG TABLET PO SCH (21:31)
[2017-08-14] MEDS: TRAVOPROST OPHTH DROPS BOTTLE 2.5ML OU SCH (21:32)
[2017-08-15] MEDS: HYDROmorphone 2 MG/ML SYRINGE IV PRN ×2 (00:30→20:00)
[2017-08-15] MEDS: 0.9 % SODIUM CHLORIDE 1,000 ML IV SCH ×3 (02:37→15:50)
[2017-08-15] MEDS: oxyCODONE/APAP 5/325MG TABLET PO PRN ×2 (04:37→22:52)
[2017-08-15] MEDS: PIPERACILLIN SODIUM/TAZOBACTAM 3.375 GM in DEXTROSE 5% IN WATER 50 ML IV SCH ×3 (05:48→17:31)
[2017-08-15] MEDS: 0.9 % SODIUM CHLORIDE 10 ML SYRINGE IV SCH ×3 (05:49→20:58)
[2017-08-15 06:43] LABS: ALT/SGPT 5 U/l (0-40); Albumin 2.9 gm/dL (3.2-5.2); Albumin/Globulin Ratio 0.5 (1.0-2.3); Alkaline Phosphatase 86 U/L (39-117); Bilirubin,Direct < 0.2 mg/dL (0.0-0.3); Blood Urea Nitrogen 12 mg/dl (6-20); Gamma Glutamyl Transpeptidase 21 U/L (5-36); Magnesium 1.9 mg/dL (1.6-2.5); Uric Acid 1.7 mg/dL (2.5-8.0)
[2017-08-15] MEDS: INSULIN LISPRO 1 UNIT/0.01 ML UNIT SQ SCH ×4 (07:38→20:57)
[2017-08-15] MEDS: metFORMIN 500 MG TAB.XL.24H PO SCH ×2 (07:39→16:58)
[2017-08-15] MEDS: FLUTICASONE PROPIONATE SPRAY.NAS NS SCH (08:42)
[2017-08-15] MEDS: DOCUSATE SODIUM 100 MG CAPSULE PO SCH ×2 (08:42→20:57)
[2017-08-15] MEDS: VENLAFAXINE 75 MG CAP.XL.24H PO SCH (08:42)
[2017-08-15] MEDS: GABAPENTIN 300 MG CAPSULE PO SCH ×3 (08:42→20:56)
[2017-08-15] MEDS: MAGNESIUM OXIDE 400 MG TABLET PO SCH ×3 (08:42→20:56)
[2017-08-15] MEDS: INSULIN GLARGINE, HUMAN 1 UNIT/0.01 ML SQ SCH ×2 (08:43→20:57)
--- NOTE | 2017-08-15 13:00 | General Surgery Progress Note ---
Subjective Patient reports: feels better, still having pain (The pain in the pubic area is more severe today; she states that she is having much more discomfort with standing), afebrile, other (She has more copious drainage through the fistulous tract today) Narrative: Note initiated : 08/15/17 at 12:57 pm Service Date, if different from initiated Date: [] Patient: Rain Harden 57 y/o F admitted on 08/13/17 for Osteomyelitis of the Pubic Symphysis w/recurring . Chief Complaint: [] Objective Temp Pulse Resp BP Pulse Ox 98.1 F 96 H 18 122/62 96 08/15/17 11:43 08/15/17 11:43 08/15/17 11:43 08/15/17 11:43 08/15/17 11:43 - Additional Data Intake & Output - Last 24 hours: Intake & Output 08/13/17 08/14/17 08/15/17 08/16/17 05:59 05:59 05:59 05:59 Intake Total 3380 / 3380 4635 / 4635 1100 / 1100 Output Total 850 / 850 Balance 2530 / 2530 4635 / 4635 1100 / 1100 Weight 182 lb 189 lb - General physical appearance moderate distress, moderate pain - Eyes PERRL - ENT no congestion - Neck no venous distension - Respiratory normal expansion, normal respiratory effort, clear to percussion, clear to auscultation - Cardiovascular Cardiovascular exam: Present: normal rate and rhythm, RRR, +S1, +S2. Absent: JVD - Abdomen tender (Tenderness around the fistulous tract but no increase in cellulitis; more copious drainage compared to yesterday) - Genitourinary other (No change in perineal fistulous opening) - Integumentary no rash, no growths, no abnormal pigmentation - Neurologic normal coordination, normal sensation - Musculoskeletal normal gait, normal posture - Psychiatric oriented to time, oriented to person, oriented to place, speech is normal, memory intact - Labs 08/14/17 04:36 08/15/17 04:58 Diabetes panel 08/15/17 Range/Units 04:58 Sodium 137 (133-145) mmol/L Potassium 3.5 (3.3-5.1) mmol/L Chloride 99 (96-108) mmol/L Carbon Dioxide 23 (22-30) mmol/L BUN 12 (6-20) mg/dl Creatinine 0.6 (0.6-1.1) mg/dl Glucose 121 H (70-105) mg/dL Calcium 9.3 (8.6-10.4) mg/dl AST 10 (0-37) U/l ALT 5 (0-40) U/l Alkaline Phosphatase 86 (39-117) U/L Total Protein 8.2 (5.9-8.4) gm/dL Albumin 2.9 L (3.2-5.2) gm/dL Triglycerides 128 (<150) mg/dl Calcium panel 08/15/17 Range/Units 04:58 Calcium 9.3 (8.6-10.4) mg/dl Phosphorus 4.2 (2.7-4.5) mg/dL Albumin 2.9 L (3.2-5.2) gm/dL Pituitary panel 08/15/17 Range/Units 04:58 Sodium 137 (133-145) mmol/L Potassium 3.5 (3.3-5.1) mmol/L Chloride 99 (96-108) mmol/L Carbon Dioxide 23 (22-30) mmol/L BUN 12 (6-20) mg/dl Creatinine 0.6 (0.6-1.1) mg/dl Glucose 121 H (70-105) mg/dL Calcium 9.3 (8.6-10.4) mg/dl Adrenal panel 08/15/17 Range/Units 04:58 Sodium 137 (133-145) mmol/L Potassium 3.5 (3.3-5.1) mmol/L Chloride 99 (96-108) mmol/L Carbon Dioxide 23 (22-30) mmol/L BUN 12 (6-20) mg/dl Creatinine 0.6 (0.6-1.1) mg/dl Glucose 121 H (70-105) mg/dL Calcium 9.3 (8.6-10.4) mg/dl Total Bilirubin 0.2 (0.0-1.0) mg/dL AST 10 (0-37) U/l ALT 5 (0-40) U/l Alkaline Phosphatase 86 (39-117) U/L Total Protein 8.2 (5.9-8.4) gm/dL Albumin 2.9 L (3.2-5.2) gm/dL Assessment and Plan (1) Osteomyelitis of symphysis pubis Status: Acute Assessment and plan: Continue present antibiotic therapy hopefully she will be accepted at [facility] on Thursday Current Visit: Yes (2) 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 Assessment and plan: Continue present antibiotic therapy Current Visit: No (3) Moderate major depression Status: Chronic Current Visit: No (4) Essential hypertension Status: Chronic Current Visit: No (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
[2017-08-15] MEDS: hydrOXYzine 25 MG TABLET PO SCH (20:56)
[2017-08-15] MEDS: SIMVASTATIN 40 MG TABLET PO SCH (20:56)
[2017-08-15] MEDS: TRAVOPROST OPHTH DROPS BOTTLE 2.5ML OU SCH (20:57)
[2017-08-16] MEDS: PIPERACILLIN SODIUM/TAZOBACTAM 3.375 GM in DEXTROSE 5% IN WATER 50 ML IV SCH ×4 (00:17→17:44)
[2017-08-16] MEDS: oxyCODONE/APAP 5/325MG TABLET PO PRN ×4 (04:12→19:04)
[2017-08-16] MEDS: 0.9 % SODIUM CHLORIDE 1,000 ML IV SCH ×2 (04:12→20:29)
[2017-08-16] MEDS: 0.9 % SODIUM CHLORIDE 10 ML SYRINGE IV SCH ×3 (05:42→20:32)
[2017-08-16] MEDS: INSULIN LISPRO 1 UNIT/0.01 ML UNIT SQ SCH ×4 (07:21→20:31)
[2017-08-16] MEDS: GABAPENTIN 300 MG CAPSULE PO SCH ×3 (09:00→20:30)
[2017-08-16] MEDS: MAGNESIUM OXIDE 400 MG TABLET PO SCH ×3 (09:00→20:30)
[2017-08-16] MEDS: DOCUSATE SODIUM 100 MG CAPSULE PO SCH ×2 (09:00→20:30)
[2017-08-16] MEDS: VENLAFAXINE 75 MG CAP.XL.24H PO SCH (09:00)
[2017-08-16] MEDS: FLUTICASONE PROPIONATE SPRAY.NAS NS SCH (09:00)
[2017-08-16] MEDS: INSULIN GLARGINE, HUMAN 1 UNIT/0.01 ML SQ SCH ×2 (09:00→20:31)
[2017-08-16] MEDS: metFORMIN 500 MG TAB.XL.24H PO SCH ×2 (09:06→17:44)
[2017-08-16] MEDS: HYDROmorphone 2 MG/ML SYRINGE IV PRN ×2 (10:48→20:16)
[2017-08-16 12:43] LABS: Basophils # (Auto) 0 K/mcL (0.0-0.3); Basophils % (Auto) 0.3 % (0.0-2.0); Eosinophils # (Auto) 0.1 K/mcL (0.0-0.7); Eosinophils % (Auto) 1.8 % (0.0-7.0); Granulocytes % (Auto) 68.8 % (38.0-78.0); Lymphocytes # (Auto) 1.6 K/mcL (1.5-4.8); Lymphocytes % (Auto) 24.4 % (15.5-49.0); Mean Cell Volume 82.2 fL (80.0-100.0); Mean Corpuscular HGB Conc 32.6 g/dL (31.0-36.0); Mean Corpuscular Hemoglobin 26.8 pg (26.0-34.0); Monocytes # (Auto) 0.3 K/mcL (0.1-0.9); Monocytes % (Auto) 4.7 % (1.0-12.0); Platelet Count 398 K/mcL (140-440); Red Cell Distribution Width 15.8 % (11.5-14.5)
--- NOTE | 2017-08-16 12:43 | General Surgery Progress Note ---
Subjective Patient reports: still having pain, tolerating a regular diet, flatus, bowel movement, afebrile Narrative: Note initiated : 08/16/17 at 12:41 pm Service Date, if different from initiated Date: [] Patient: Rain Harden 57 y/o F admitted on 08/13/17 for Osteomyelitis of the Pubic Symphysis w/recurring . Chief Complaint: [Patient is stable except for suprapubic and pelvic pain with standing and with walking. She is advised that this will continue until her infectious process is controlled. The purulent drainage remains copious. There was a mishap with her initial cultures and repeat cultures have been done. They probably will not be available if the patient is transferred tomorrow.] Objective Temp Pulse Resp BP Pulse Ox 98.6 F 80 16 136/80 97 08/16/17 11:29 08/16/17 04:17 08/16/17 11:29 08/16/17 11:29 08/16/17 11:29 - Additional Data Intake & Output - Last 24 hours: Intake & Output 08/14/17 08/15/17 08/16/17 08/17/17 05:59 05:59 05:59 05:59 Intake Total 3380 / 3380 4635 / 4635 4350 / 4350 610 / 610 Output Total 850 / 850 3 / 3 Balance 2530 / 2530 4635 / 4635 4347 / 4347 610 / 610 Weight 182 lb 189 lb 190 lb 11.2 oz - General physical appearance well developed, well nourished, moderate pain - Eyes PERRL, normal ocular movement - ENT no congestion - Neck no masses, no bruits, trachea midline, no lymphadectomy, no venous distension - Respiratory normal expansion, normal respiratory effort, clear to percussion, clear to auscultation - Cardiovascular Cardiovascular exam: Present: normal rate and rhythm, RRR, +S1, +S2. Absent: gallop, JVD, systolic murmur - Abdomen non tender, tender (The abdomen is nontender but she does have some suprapubic and anterior pubic symphysis pain with palpation. The fistulous tract is open and has copious purulent drainage), bowel sounds (present), surgical scars (none ), masses (none) - Genitourinary other ( no change in the left labial fistulous tract) - Integumentary no rash, no growths, no abnormal pigmentation - Neurologic normal coordination, normal sensation - Musculoskeletal other (Mild limping due to pain in her supra pubic area) - Psychiatric oriented to time, oriented to person, oriented to place, speech is normal, memory intact - Labs 08/14/17 04:36 08/15/17 04:58 Assessment and Plan (1) Osteomyelitis of symphysis pubis Status: Acute Assessment and plan: Continue present antibiotic therapy hopefully she will be accepted at [facility] on Thursday Current Visit: Yes (2) 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 Assessment and plan: Continue present antibiotic therapy Current Visit: No (3) Moderate major depression Status: Chronic Current Visit: No (4) Essential hypertension Status: Chronic Current Visit: No (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
[2017-08-16 13:04] LABS: ALT/SGPT 6 U/l (0-40); Albumin 2.7 gm/dL (3.2-5.2); Albumin/Globulin Ratio 0.7 (1.0-2.3); Alkaline Phosphatase 72 U/L (39-117); Bilirubin,Direct < 0.2 mg/dL (0.0-0.3); Blood Urea Nitrogen 8 mg/dl (6-20); Gamma Glutamyl Transpeptidase 19 U/L (5-36); Magnesium 1.8 mg/dL (1.6-2.5); Uric Acid 1.3 mg/dL (2.5-8.0)
[2017-08-16] MEDS: SIMVASTATIN 40 MG TABLET PO SCH (20:30)
[2017-08-16] MEDS: hydrOXYzine 25 MG TABLET PO SCH (20:30)
[2017-08-16] MEDS: TRAVOPROST OPHTH DROPS BOTTLE 2.5ML OU SCH (20:32)
[2017-08-17] MEDS: PIPERACILLIN SODIUM/TAZOBACTAM 3.375 GM in DEXTROSE 5% IN WATER 50 ML IV SCH ×2 (00:19→05:44)
[2017-08-17] MEDS: oxyCODONE/APAP 5/325MG TABLET PO PRN ×3 (00:39→09:02)
[2017-08-17] MEDS: 0.9 % SODIUM CHLORIDE 10 ML SYRINGE IV SCH (05:45)
[2017-08-17] MEDS: INSULIN LISPRO 1 UNIT/0.01 ML UNIT SQ SCH (07:16)
[2017-08-17] MEDS: HYDROmorphone 2 MG/ML SYRINGE IV PRN (07:20)
[2017-08-17] MEDS: GABAPENTIN 300 MG CAPSULE PO SCH (09:02)
[2017-08-17] MEDS: metFORMIN 500 MG TAB.XL.24H PO SCH (09:02)
[2017-08-17] MEDS: VENLAFAXINE 75 MG CAP.XL.24H PO SCH (09:02)
[2017-08-17] MEDS: MAGNESIUM OXIDE 400 MG TABLET PO SCH (09:02)
[2017-08-17] MEDS: INSULIN GLARGINE, HUMAN 1 UNIT/0.01 ML SQ SCH (09:03)
[2017-08-17] MEDS: 0.9 % SODIUM CHLORIDE 1,000 ML IV SCH (09:03)
[2017-08-17] MEDS: FLUTICASONE PROPIONATE SPRAY.NAS NS SCH (09:03)
[2017-08-17] MEDS: DOCUSATE SODIUM 100 MG CAPSULE PO SCH (09:03)
--- NOTE | 2017-08-17 10:40 | Discharge Summary ---
Providers - Providers Patient information: Note initiated : 08/17/17 at 10:39 am Service Date, if different from initiated Date: [] Patient: Rain Harden 57 y/o F admitted on 08/13/17 for Osteomyelitis of the Pubic Symphysis w/recurring . Chief Complaint: [] Date of admission: 08/13/17 Discharge date: 08/17/17 Attending physician: [facility] Hospital course: 57-year-old femalwas admitted on 13 August 2017 for recurrent abdominal wall abscess and osteomyelitis of the pubic symphysis with some bony erosions in the right inferior and left inferior pubic rami. The patient by CT has a 9.2 x 4.5 abscess cavity the lower abdominal wall that is spontaneously draining. Though she did not appear to be septic she was having worsening uncontrolled pain. It was felt that she needed IV antibiotics and transferred to a tertiary center for multifaceted coordination of care with resection of the bony erosions of the pubic symphysis and debridement of pubic rami if needed. the patient has been symptomatic since early December 2016 and the specifics of her course are well outlined in the admission history and physical dated 13 August 2017. She has received antibiotics since admissio. Cultures were lost by the lab and were done yesterday as a repeat. She is clinically stable and is transferred to the [facility] in [facility] FOR MORE AGGRESSIVE COORDINATING CARE. Discharge diagnosis: oosteomyelitis of the pubic symphysis Secondary discharge diagnosis: recurrent abdominal wall abscess Diabetes mellitus type 2 Immunosuppressed state due to chronic Humira therapy Rheumatoid arthritis Anemia of chronic disease Reason for admission: recurrent abdominal wall abscess and uncontrolled pain Procedures: none Pertinent studies/significant findings: CT of abdomen and pelvis with IV contrast Complications: none Exam Temp Pulse Resp BP Pulse Ox 97.6 F 80 18 113/70 93 08/17/17 06:49 08/17/17 04:26 08/17/17 06:49 08/17/17 06:49 08/17/17 06:49 - General physical appearance well developed, well nourished, no distress - Eyes PERRL, normal ocular movement - ENT normal pinna, normal nares, normal mucosa, no hearing loss, no congestion - Head Head exam IM: Present: atraumatic, normocephalic - Neck no masses, no bruits, trachea midline, no lymphadectomy, no venous distension - Cardiovascular Cardiovascular exam IM: Present: normal rate and rhythm - Respiratory normal expansion, normal respiratory effort, clear to percussion, clear to auscultation - Abdomen Abdomen: Present: soft, tender (tender draining sinus in lower suprapubic area with tenderness of pubic symphysis and hypogastrium), bowel sounds Hernia: Present: none - Genitourinary Present: normal external genitalia, other (draining fistulous tract left lower labia majora) - Rectum Rectum: Present: normal sphincter tone, no hemorrhoids, no tenderness, no masses , no bleeding - Integumentary Present: no rash, no growths, no abnormal pigmentation - Neurologic Present: normal coordination, normal sensation - Musculoskeletal Present: normal gait, normal posture - Psychiatric Present: oriented to time, oriented to person, oriented to place, speech is normal, memory intact Discharge Plan - Patient/Caregiver Discharge Instructions Activity: other (patient is transferred to the tertiary facility for continued care) Diet: Consistent Carbohydrate Additional Instructions: none - Follow up Plan Disposition: [facility] Prognosis: Good Rehab Potential: Good I certify that the patient requires SNF services.: No Overall status at discharge: patient is not back to baseline Pending Studies Resuscitation Status Full Code Diet Consistent Carbohydrate Diet Start Herlinda Aug 13 1054 Acetaminophen (Tylenol) 650 mg PO Q6HP PRN PRN Reason: PAIN/FEVER > 101 Last Admin: 08/13/17 15:27 Dose: 650 mg Cyclobenzaprine HCl (Flexeril) 10 mg PO HSP PRN PRN Reason: Muscle Spasm Last Admin: 08/14/17 14:48 Dose: 10 mg Admin: 08/13/17 21:48 Dose: 10 mg Diagnostic Test (Pha) (Accu-Chek) 1 each FS ACHS [facility] Last Admin: 08/17/17 07:15 Dose: 1 each Admin: 08/17/17 00:15 Dose: 1 each Admin: 08/16/17 20:31 Dose: 1 each Admin: 08/16/17 17:19 Dose: 1 each Admin: 08/16/17 10:51 Dose: 1 each Admin: 08/16/17 07:20 Dose: 1 each Admin: 08/15/17 20:56 Dose: 1 each Admin: 08/15/17 16:57 Dose: 1 each Admin: 08/15/17 11:32 Dose: 1 each Admin: 08/15/17 07:38 Dose: 1 each Admin: 08/14/17 23:26 Dose: 1 each Admin: 08/14/17 21:30 Dose: 1 each Admin: 08/14/17 17:39 Dose: 1 each Admin: 08/14/17 12:47 Dose: 1 each Admin: 08/14/17 08:48 Dose: 1 each Admin: 08/14/17 04:34 Dose: 1 each Admin: 08/14/17 00:14 Dose: 1 each Admin: 08/13/17 20:55 Dose: 1 each Admin: 08/13/17 19:21 Dose: 1 each Docusate Sodium (Colace) 100 mg PO BID [facility] Last Admin: 08/17/17 09:03 Dose: Not Given Admin: 08/16/17 20:30 Dose: 100 mg Admin: 08/16/17 09:00 Dose: 100 mg Admin: 08/15/17 20:57 Dose: 100 mg Admin: 08/15/17 08:42 Dose: 100 mg Admin: 08/14/17 21:31 Dose: 100 mg Admin: 08/14/17 08:49 Dose: 100 mg Admin: 08/13/17 21:56 Dose: Not Given Fluticasone Propionate (Flonase) 2 spray NS DAILY [facility] Last Admin: 08/17/17 09:03 Dose: Not Given Admin: 08/16/17 09:00 Dose: Not Given Admin: 08/15/17 08:42 Dose: Not Given Gabapentin (Neurontin) 300 mg PO TID [facility] Last Admin: 08/17/17 09:02 Dose: 300 mg Admin: 08/16/17 20:30 Dose: 300 mg Admin: 08/16/17 14:43 Dose: 300 mg Admin: 08/16/17 09:00 Dose: 300 mg Admin: 08/15/17 20:56 Dose: 300 mg Admin: 08/15/17 14:40 Dose: 300 mg Admin: 08/15/17 08:42 Dose: 300 mg Admin: 08/14/17 21:31 Dose: 300 mg Admin: 08/14/17 15:05 Dose: 300 mg Admin: 08/14/17 08:49 Dose: 300 mg Admin: 08/13/17 21:48 Dose: 300 mg Hydromorphone HCl (Dilaudid) 1 mg IV Q2HP PRN PRN Reason: PAIN LEVEL > 6 Last Admin: 08/17/17 07:20 Dose: 1 mg Admin: 08/16/17 20:16 Dose: 1 mg Admin: 08/16/17 10:48 Dose: 1 mg Admin: 08/15/17 20:00 Dose: 1 mg Admin: 08/15/17 00:30 Dose: 1 mg Admin: 08/14/17 15:05 Dose: 1 mg Hydroxyzine HCl (Atarax) 25 mg PO HS [facility] Last Admin: 08/16/17 20:30 Dose: 25 mg Admin: 08/15/17 20:56 Dose: 25 mg Admin: 08/14/17 21:31 Dose: 25 mg Admin: 08/13/17 21:48 Dose: 25 mg Sodium Chloride (Sodium Chloride 0.9%) 1,000 mls @ 75 mls/hr IV .[id number] [facility] Last Admin: 08/17/17 09:03 Dose: Not Given Admin: 08/16/17 20:29 Dose: 75 mls/hr Infusion: 08/16/17 17:32 Dose: 75 mls/hr Admin: 08/16/17 04:12 Dose: 75 mls/hr Infusion: 08/16/17 02:02 Dose: 75 mls/hr Admin: 08/15/17 15:50 Dose: Not Given Admin: 08/15/17 12:42 Dose: 75 mls/hr Infusion: 08/15/17 11:01 Dose: 75 mls/hr Admin: 08/15/17 02:37 Dose: Not Given Admin: 08/14/17 21:41 Dose: 75 mls/hr Infusion: 08/14/17 15:55 Dose: 75 mls/hr Admin: 08/14/17 14:29 Dose: Not Given Admin: 08/14/17 02:35 Dose: 75 mls/hr Infusion: 08/14/17 01:20 Dose: 75 mls/hr Admin: 08/13/17 12:00 Dose: 75 mls/hr Piperacillin Sod/Tazobactam (Sod 3.375 gm/ Dextrose) 50 mls @ 100 mls/hr IV Q6H [facility] Last Admin: 08/17/17 05:44 Dose: 100 mls/hr Infusion: 08/17/17 00:49 Dose: 100 mls/hr Admin: 08/17/17 00:19 Dose: 100 mls/hr Infusion: 08/16/17 18:14 Dose: 100 mls/hr Admin: 08/16/17 17:44 Dose: 100 mls/hr Infusion: 08/16/17 12:14 Dose: 100 mls/hr Admin: 08/16/17 11:44 Dose: 100 mls/hr Infusion: 08/16/17 06:14 Dose: 100 mls/hr Admin: 08/16/17 05:44 Dose: 100 mls/hr Infusion: 08/16/17 00:47 Dose: 100 mls/hr Admin: 08/16/17 00:17 Dose: 100 mls/hr Infusion: 08/15/17 18:01 Dose: 100 mls/hr Admin: 08/15/17 17:31 Dose: 100 mls/hr Infusion: 08/15/17 11:59 Dose: 0 mls/hr Admin: 08/15/17 11:29 Dose: 100 mls/hr Infusion: 08/15/17 06:18 Dose: 0 mls/hr Admin: 08/15/17 05:48 Dose: 100 mls/hr Infusion: 08/15/17 00:01 Dose: 100 mls/hr Admin: 08/14/17 23:31 Dose: 100 mls/hr Infusion: 08/14/17 19:09 Dose: 100 mls/hr Admin: 08/14/17 18:39 Dose: 100 mls/hr Infusion: 08/14/17 14:57 Dose: 100 mls/hr Admin: 08/14/17 14:27 Dose: 100 mls/hr Infusion: 08/14/17 05:31 Dose: 100 mls/hr Admin: 08/14/17 05:01 Dose: 100 mls/hr Infusion: 08/14/17 00:22 Dose: 100 mls/hr Admin: 08/13/17 23:52 Dose: 100 mls/hr Infusion: 08/13/17 18:21 Dose: 100 mls/hr Admin: 08/13/17 17:51 Dose: 100 mls/hr Infusion: 08/13/17 12:30 Dose: 100 mls/hr Admin: 08/13/17 12:00 Dose: 100 mls/hr Insulin Glargine (Lantus) 30 unit SQ BID [facility] Last Admin: 08/17/17 09:03 Dose: 30 unit Admin: 08/16/17 20:31 Dose: 30 unit Admin: 08/16/17 09:00 Dose: 30 unit Admin: 08/15/17 20:57 Dose: 30 unit Admin: 08/15/17 08:43 Dose: 30 unit Admin: 08/14/17 21:30 Dose: 30 unit Insulin Human Lispro (Humalog) 0 unit SQ ACHS [facility] PRN Reason: Protocol Last Admin: 08/17/17 07:16 Dose: Not Given Admin: 08/16/17 20:31 Dose: 8 unit Admin: 08/16/17 17:44 Dose: 8 unit Admin: 08/16/17 11:44 Dose: 8 unit Admin: 08/16/17 07:21 Dose: Not Given Admin: 08/15/17 20:57 Dose: 10 unit Admin: 08/15/17 16:58 Dose: 6 unit Admin: 08/15/17 11:33 Dose: 10 unit Admin: 08/15/17 07:38 Dose: 2 unit Admin: 08/14/17 23:31 Dose: 8 unit Admin: 08/14/17 21:30 Dose: 14 unit Admin: 08/14/17 18:39 Dose: 12 unit Admin: 08/14/17 12:46 Dose: 10 unit Admin: 08/14/17 08:48 Dose: 10 unit Admin: 08/13/17 21:40 Dose: 12 unit Admin: 08/13/17 19:21 Dose: 14 unit Magnesium Oxide (Magnesium Oxide) 400 mg PO TID [facility] Last Admin: 08/17/17 09:02 Dose: 400 mg Admin: 08/16/17 20:30 Dose: 400 mg Admin: 08/16/17 14:43 Dose: 400 mg Admin: 08/16/17 09:00 Dose: 400 mg Admin: 08/15/17 20:56 Dose: 400 mg Admin: 08/15/17 14:40 Dose: 400 mg Admin: 08/15/17 08:42 Dose: 400 mg Admin: 08/14/17 21:31 Dose: 400 mg Admin: 08/14/17 15:06 Dose: 400 mg Metformin HCl (Glucophage) 500 mg PO BIDCC [facility] Last Admin: 08/17/17 09:02 Dose: 500 mg Admin: 08/16/17 17:44 Dose: 500 mg Admin: 08/16/17 09:06 Dose: 500 mg Admin: 08/15/17 16:58 Dose: 500 mg Admin: 08/15/17 07:39 Dose: 500 mg Admin: 08/14/17 17:39 Dose: 500 mg Oxycodone/Acetaminophen (Percocet 5-325 Mg) 1 tab PO Q4HP PRN PRN Reason: PAIN LEVEL 3-6 Last Admin: 08/17/17 09:02 Dose: 1 tab Admin: 08/17/17 04:24 Dose: 1 tab Admin: 08/17/17 00:39 Dose: 1 tab Admin: 08/16/17 19:04 Dose: 1 tab Admin: 08/16/17 14:43 Dose: 1 tab Admin: 08/16/17 09:06 Dose: 1 tab Admin: 08/16/17 04:12 Dose: 1 tab Admin: 08/15/17 22:52 Dose: 1 tab Admin: 08/15/17 04:37 Dose: 1 tab Admin: 08/14/17 22:58 Dose: 1 tab Admin: 08/14/17 14:46 Dose: 1 tab Admin: 08/14/17 08:57 Dose: 1 tab Admin: 08/14/17 04:32 Dose: 1 tab Admin: 08/13/17 21:55 Dose: 1 tab Simvastatin (Zocor) 40 mg PO [facility] Last Admin: 08/16/17 20:30 Dose: 40 mg Admin: 08/15/17 20:56 Dose: 40 mg Admin: 08/14/17 21:31 Dose: 40 mg Admin: 08/13/17 21:48 Dose: 40 mg Sodium Chloride (Saline Flush) 10 ml IV Q8 [facility] Last Admin: 08/17/17 05:45 Dose: Not Given Admin: 08/16/17 20:32 Dose: Not Given Admin: 08/16/17 12:52 Dose: Not Given Admin: 08/16/17 05:42 Dose: Not Given Admin: 08/15/17 20:58 Dose: Not Given Admin: 08/15/17 13:26 Dose: Not Given Admin: 08/15/17 05:49 Dose: Not Given Admin: 08/14/17 21:32 Dose: Not Given Admin: 08/14/17 13:13 Dose: Not Given Admin: 08/14/17 05:01 Dose: Not Given Admin: 08/13/17 22:36 Dose: Not Given Admin: 08/13/17 15:05 Dose: Not Given Travoprost (Travatan Z Ophth Drops) 1 gtt OU HS [facility] Last Admin: 08/16/17 20:32 Dose: Not Given Admin: 08/15/17 20:57 Dose: Not Given Admin: 08/14/17 21:32 Dose: Not Given Venlafaxine HCl (Effexor Xr) 225 mg PO DAILY [facility] Last Admin: 08/17/17 09:02 Dose: 225 mg Admin: 08/16/17 09:00 Dose: 225 mg Admin: 08/15/17 08:42 Dose: 225 mg Shift Summary 08/17/17 03:40 Shift Summary by Liyah Michaels&[email or web address]. VSS with elevated HR. Up independently. Patient took shower last night. Tunneling wound below belly button has dressing in place and is CDI. Tunneling wound below left labia is open to air. 22 gauge to RFA with NS at 75 ml/hr. Administered Dialudid x1 and Percocet x2 for pelvic pain. Plan is for patient to be transferred to [facility] today; this is still in process. Initialized on 08/17/17 03:40 - END OF NOTE
== END 2017-08-17 11:30 | disposition short-term general hospital (02) | DRG 540 ==
LOC: MEDSUR → OBSVTOIN 10:19
PROVIDERS: ADMIT Family Medicine Adult Medicine; ATTEND Family Medicine Adult Medicine